=== PATIENT | female | born 2000 | race Caucasian/White ===

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

== ENCOUNTER 2020-07-01 11:36 | Emergency (ER) | payer OTHER ==
[2020-07-01 11:43] VITALS: RESP 18
[2020-07-01] MEDS ORDERED: KETOROLAC 15 MG/ML 1 ML VIAL IVP STA (12:04)
[2020-07-01] MEDS ORDERED: SODIUM CHLORIDE 0.9% 1,000 ML IV ONE (12:04)
[2020-07-01 12:26] LABS: Basophils # (A) 0.1 k/uL (0-0.2); Basophils % (A) 1 %; Eosinophils # (A) 0.2 k/uL (0-0.7); Eosinophils % (A) 1 %; HCT 39.2 % (34.0-46.0); HGB 12.4 gm/dL (11.4-16.0); Lymphocytes # (A) 1.3 k/uL (1.0-4.8); Lymphocytes % (A) 10 %; MCH 26.4 pg (25.0-35.0); MCHC 31.6 g/dL (31.0-37.0); MCV 83.7 fL (80.0-100.0); Mean Platelet Volume 7.5; Monocytes # (A) 0.6 k/uL (0-1.0); Monocytes % (A) 5 %; Neutrophils # (A) 10.7 k/uL (1.3-7.7); Neutrophils % (A) 82 %; Platelet Count 265 k/uL (150-450); RBC 4.68 m/uL (3.80-5.40); RDW 13.2 % (11.5-15.5); WBC 12.9 k/uL (3.8-10.6)
--- NOTE | 2020-07-01 12:33 | ED ---
Female Urogenital HPI - General Chief complaint: Urogenital Stated complaint: Fever/pelvic pain Time Seen by Provider: 07/01/20 11:44 Source: patient, RN notes reviewed, old records reviewed Mode of arrival: ambulatory Limitations: no limitations - History of Present Illness Initial comments: Patient is a 20-year-old female presents weren't from today with 2 days of dysuria, stating she's had redness and swelling to her genitalia. She states she's also had some right-sided flank pain starting today and has noticed fevers for the past 2 days. She did test for COVID at urgent care yesterday and was not sure of these results of this time. She denies any difficulty breathing or throat swelling or upper respiratory symptoms. - Related Data Home Medications Medication Instructions Recorded Confirmed Norgestimate-Ethinyl Estradiol 1 tab PO DAILY 01/08/15 02/04/17 [Tri-Sprintec Tablet] Ibuprofen [Motrin] 400 mg PO Q6HR PRN 02/04/17 02/04/17 L.acidoph,Paracasei, B.lactis 1 cap PO BID 02/04/17 02/04/17 [Probiotic] Miconazole Nitrate [Miconazole 3] 200 mg VAGINAL HS 02/04/17 02/04/17 Multivitamins, Thera [Multivitamin 1 tab PO DAILY 02/04/17 02/04/17 (formulary)] Naproxen Sodium [Aleve] 220 mg PO Q12HR PRN 02/04/17 02/04/17 Previous Rx's Medication Instructions Recorded Albuterol Inhaler (Mhu) [Ventolin 1 - 2 puff INHALATION Q4-6H PRN #1 02/04/17 Hfa Inhaler (Mhu)] inhaler Cephalexin [Keflex] 500 mg PO Q6HR 7 Days #28 cap 07/01/20 valACYclovir HCL [Valtrex] 1,000 mg PO BID #14 tab 07/01/20 Allergies Allergy/AdvReac Type Severity Reaction Status Date / Time amoxicillin trihydrate Allergy Unknown Verified 07/01/20 11:44 [From Augmentin] lansoprazole [From Prevacid] Allergy Unknown Verified 07/01/20 11:44 omeprazole [From Prilosec] Allergy Unknown Verified 07/01/20 11:44 potassium clavulanate Allergy Unknown Verified 07/01/20 11:44 [From Augmentin] Review of Systems ROS Statement: Those systems with pertinent positive or pertinent negative responses have been documented in the HPI. ROS Other: All systems not noted in ROS Statement are negative. Past Medical History Past Medical History: No Reported History Additional Past Medical History / Comment(s): heart murmur, PID History of Any Multi-Drug Resistant Organisms: None Reported Past Surgical History: No Surgical Hx Reported Past Psychological History: Anxiety, Depression Past Alcohol Use History: Occasional Past Drug Use History: None Reported - Past Family History Mother Family Medical History: No Reported History General Exam Limitations: no limitations Head exam: Present: atraumatic, normocephalic, normal inspection Eye exam: Present: normal appearance, PERRL, EOMI. Absent: scleral icterus, conjunctival injection, periorbital swelling ENT exam: Present: normal exam, mucous membranes moist Neck exam: Present: normal inspection. Absent: tenderness, meningismus, lymphadenopathy Respiratory exam: Present: normal lung sounds bilaterally. Absent: respiratory distress, wheezes, rales, rhonchi, stridor Cardiovascular Exam: Present: regular rate, normal rhythm, normal heart sounds. Absent: systolic murmur, diastolic murmur, rubs, gallop, clicks GI/Abdominal exam: Present: soft, normal bowel sounds. Absent: distended, tenderness, guarding, rebound, rigid External exam: Absent: normal external exam, erythema (Patient has erythematous blisterlike lesions over labia minora.) Speculum exam: Present: vaginal discharge. Absent: normal speculum exam By manual exam: Present: normal by manual exam. Absent: cervical motion tenderness, adnexal tenderness Extremities exam: Present: normal inspection, full ROM, normal capillary refill. Absent: tenderness, pedal edema, joint swelling, calf tenderness Back exam: Present: normal inspection Neurological exam: Present: alert, oriented X3, CN II-XII intact Psychiatric exam: Present: normal affect, normal mood Skin exam: Present: warm, dry, intact, normal color. Absent: rash Course Vital Signs 07/01/20 07/01/20 07/01/20 11:40 12:52 14:02 Temperature 98.1 F Pulse Rate 124 H 91 78 Respiratory 18 18 18 Rate Blood Pressure 124/72 121/70 118/73 O2 Sat by Pulse 98 98 99 Oximetry 07/01/20 14:34 Temperature 99.5 F Pulse Rate Respiratory Rate Blood Pressure O2 Sat by Pulse Oximetry Medical Decision Making - Medical Decision Making 20 year old female presents today for fever, dysuria, and labial lesions. Patient has erythematous painful lesion on labia minora, concerning for herpes simplx infection. UA is positive for UTI, and culture will be completed. She had minimnal flank pain, and was given IV rocephin for treatment of pyelonephritis. Pt cBC and cMP is unremarkable. Pt will be treated with valtrex and antibiotics. Chlamydia and gonorrhea testing pending. Discussed return parameters and OBGYN follow up. - Lab Data Result diagrams: 07/01/20 12:14 07/01/20 12:14 Lab Results 07/01/20 07/01/20 07/01/20 Range/Units 12:14 12:14 12:14 WBC 12.9 H (3.8-10.6) k/uL RBC 4.68 (3.80-5.40) m/uL Hgb 12.4 (11.4-16.0) gm/dL Hct 39.2 (34.0-46.0) % MCV 83.7 (80.0-100.0) fL MCH 26.4 (25.0-35.0) pg MCHC 31.6 (31.0-37.0) g/dL RDW 13.2 (11.5-15.5) % Plt Count 265 (150-450) k/uL Neutrophils % 82 % Lymphocytes % 10 % Monocytes % 5 % Eosinophils % 1 % Basophils % 1 % Neutrophils # 10.7 H (1.3-7.7) k/uL Lymphocytes # 1.3 (1.0-4.8) k/uL Monocytes # 0.6 (0-1.0) k/uL Eosinophils # 0.2 (0-0.7) k/uL Basophils # 0.1 (0-0.2) k/uL Sodium 136 L (137-145) mmol/L Potassium 3.9 (3.5-5.1) mmol/L Chloride 102 (98-107) mmol/L Carbon Dioxide 24 (22-30) mmol/L Anion Gap 10 mmol/L BUN 9 (7-17) mg/dL Creatinine 0.59 (0.52-1.04) mg/dL Est GFR (CKD-EPI)AfAm >90 (>60 ml/min/1.73 sqM) Est GFR (CKD-EPI)NonAf >90 (>60 ml/min/1.73 sqM) Glucose 117 H (74-99) mg/dL Plasma Lactic Acid Ruben (0.7-2.0) mmol/L Calcium 9.0 (8.4-10.2) mg/dL Total Bilirubin 0.4 (0.2-1.3) mg/dL AST 28 (14-36) U/L ALT 14 (4-34) U/L Alkaline Phosphatase 100 (38-126) U/L Total Protein 7.1 (6.3-8.2) g/dL Albumin 4.0 (3.5-5.0) g/dL Urine Color Urine Appearance (Clear) Urine pH (5.0-8.0) Ur Specific [place] (1.001-1.035) Urine Protein (Negative) Ur Protein Confirm Urine Glucose (UA) (Negative) Urine Ketones (Negative) Urine Blood (Negative) Urine Nitrite (Negative) Urine Bilirubin (Negative) Ur Bilirubin Confirm Urine Urobilinogen (<2.0) mg/dL Ur Leukocyte Esterase (Negative) Urine RBC (0-5) /hpf Urine WBC (0-5) /hpf Ur Squamous Epith Cells (0-4) /hpf Urine Bacteria (None) /hpf Urine Mucus (None) /hpf Urine HCG, Qual Not Detected (Not Detectd) Trichomonas Ag (Rapid) (Negative) 07/01/20 07/01/20 07/01/20 Range/Units 12:14 12:14 12:14 WBC (3.8-10.6) k/uL RBC (3.80-5.40) m/uL Hgb (11.4-16.0) gm/dL Hct (34.0-46.0) % MCV (80.0-100.0) fL MCH (25.0-35.0) pg MCHC (31.0-37.0) g/dL RDW (11.5-15.5) % Plt Count (150-450) k/uL Neutrophils % % Lymphocytes % % Monocytes % % Eosinophils % % Basophils % % Neutrophils # (1.3-7.7) k/uL Lymphocytes # (1.0-4.8) k/uL Monocytes # (0-1.0) k/uL Eosinophils # (0-0.7) k/uL Basophils # (0-0.2) k/uL Sodium (137-145) mmol/L Potassium (3.5-5.1) mmol/L Chloride (98-107) mmol/L Carbon Dioxide (22-30) mmol/L Anion Gap mmol/L BUN (7-17) mg/dL Creatinine (0.52-1.04) mg/dL Est GFR (CKD-EPI)AfAm (>60 ml/min/1.73 sqM) Est GFR (CKD-EPI)NonAf (>60 ml/min/1.73 sqM) Glucose (74-99) mg/dL Plasma Lactic Acid Ruben 1.5 (0.7-2.0) mmol/L Calcium (8.4-10.2) mg/dL Total Bilirubin (0.2-1.3) mg/dL AST (14-36) U/L ALT (4-34) U/L Alkaline Phosphatase (38-126) U/L Total Protein (6.3-8.2) g/dL Albumin (3.5-5.0) g/dL Urine Color Yellow Urine Appearance Slightly Cloudy H (Clear) Urine pH 6.0 (5.0-8.0) Ur Specific [place] 1.025 (1.001-1.035) Urine Protein 2+ (Negative) Ur Protein Confirm [employer]ILDER [employer]ADER Urine Glucose (UA) Negative (Negative) Urine Ketones 1+ (Negative) Urine Blood Moderate (Negative) Urine Nitrite Negative (Negative) Urine Bilirubin 2+ H (Negative) Ur Bilirubin Confirm [employer] BUILDER LOADER Urine Urobilinogen 4.0 (<2.0) mg/dL Ur Leukocyte Esterase Large (Negative) Urine RBC 17 H (0-5) /hpf Urine WBC 50 H (0-5) /hpf Ur Squamous Epith Cells 6 H (0-4) /hpf Urine Bacteria Many H (None) /hpf Urine Mucus Many H (None) /hpf Urine HCG, Qual (Not Detectd) Trichomonas Ag (Rapid) Negative (Negative) Disposition Clinical Impression: UTI (urinary tract infection), Herpes simplex infection Disposition: HOME SELF-CARE Condition: Good Instructions (If sedation given, give patient instructions): Genital Herpes Simplex (ED), Urinary Tract Infection in Women (ED) Additional Instructions: Alternate between Tylenol and Motrin for fever and pain. Follow-up with your primary care physician or [employer]PA[employer]ER symptoms continue persist or any other concerns the next week. Patient should take the entire prescription of antibiotic and antiviral medication. Return to the ED if any alarming signs or symptoms occur. Prescriptions: Cephalexin [Keflex] 500 mg PO Q6HR 7 Days #28 cap valACYclovir HCL [Valtrex] 1,000 mg PO BID #14 tab Is patient prescribed a controlled substance at d/c from ED?: No Referrals: Nonstaff,Physician [REFERRING] - 1-2 days Time of Disposition: 14:08
[2020-07-01 12:38] LABS: ALT 14 U/L (4-34); AST 28 U/L (14-36); African American GFR (CKD) >90 (>60 ml/min/1.73 sqM); Alkaline Phosphatase 100 U/L (38-126); Anion Gap 10 mmol/L; Blood Urea Nitrogen 9 mg/dL (7-17); Carbon Dioxide 24 mmol/L (22-30); Chloride 102 mmol/L (98-107); Glucose 117 mg/dL (74-99); Non-African American GFR(CKD) >90 (>60 ml/min/1.73 sqM); Potassium 3.9 mmol/L (3.5-5.1); Sodium 136 mmol/L (137-145); Total Bilirubin 0.4 mg/dL (0.2-1.3); Total Protein 7.1 g/dL (6.3-8.2)
[2020-07-01 13:31] LABS: Bacteria,Urine Many /hpf; Mucus,Urine Many /hpf; RBC,Urine 17 /hpf (0-5); Squamous Epithelial Cell,Urine 6 /hpf (0-4); WBC,Urine 50 /hpf (0-5)
[2020-07-01 13:37] LABS: Appearance,Urine Slightly Cloudy (Clear); Color,Urine Yellow
[2020-07-01 13:38] LABS: Glucose,Urine (UA) Negative (Negative); Protein,Urine 2+ (Negative); Specific Gravity,Urine 1.025 (1.001-1.035)
[2020-07-01 13:39] LABS: Bilirubin,Urine 2+ (Negative); Ketones,Urine 1+ (Negative)
[2020-07-01 13:40] LABS: Blood,Urine Moderate (Negative); Leukocyte Esterase,Urine Large (Negative); Nitrite,Urine Negative (Negative)
[2020-07-01] MEDS: cefTRIAXone IN SWFI 1,000 MG/10 ML SYRINGE IVP SCH (14:00)
[2020-07-01 14:10] VITALS: BP 118/73; PULSE 78
[2020-07-01 14:35] VITALS: TEMP 99.5
== END 2020-07-01 14:39 | disposition home or self-care (01) ==
LOC: EC 11:36
DX: N39.0 Urinary tract infection, site not specified (principal); B00.9 Herpesviral infection, unspecified; Z88.0 Allergy status to penicillin; Z88.8 Allergy status to other drugs, medicaments and biological substances; Z79.3 Long term (current) use of hormonal contraceptives
CPT/HCPCS: 36415; 80053; 83605; 85025; 81001; 81025; 87040; 87808; 87491; 87591; 87070; 87086; 99284; 96374; 96375; 96361; J0696; J1885

== ENCOUNTER 2020-07-02 11:46 | Emergency (ER) | payer OTHER ==
[2020-07-02 11:51] VITALS: BP 114/72; PULSE 105; RESP 18; TEMP 98.2
[2020-07-02] MEDS ORDERED: LIDOCAINE 2% GEL 30 ML TUBE TOPICAL ONE (12:24)
--- NOTE | 2020-07-02 12:56 | ED ---
Female Urogenital HPI - General Chief complaint: Urogenital Stated complaint: recheck - UTI Time Seen by Provider: 07/02/20 11:54 Source: patient Mode of arrival: ambulatory Limitations: no limitations - History of Present Illness Initial comments: Patient is a 20-year-old female presenting to the emergency department for a recheck from her visit yesterday. Patient was seen in the ER yesterday and was diagnosed with a UTI as well as genital herpes. She was started on Valtrex as well as Keflex and also given Rocephin in the ER before discharge. Patient states she has been using this medication but continues to have vaginal discomfort and pain. She states she still been having mild fevers. She denies any nausea or vomiting. She states she took an Aleve at approximately 4 AM this morning. She states that she has not been sexually active since November of this year. She is not . Patient is concerned with her ongoing pain and disc omfort. She admits to some mild lower abdominal cramping but states this is normal for her as she does have endometriosis. She denies any chest pain or shortness of breath. She has no further complaints at this time. Upon arrival to the ER, her vital signs are stable. - Related Data Home Medications Medication Instructions Recorded Confirmed Norgestimate-Ethinyl Estradiol 1 tab PO DAILY 01/08/15 02/04/17 [Tri-Sprintec Tablet] Ibuprofen [Motrin] 400 mg PO Q6HR PRN 02/04/17 02/04/17 L.acidoph,Paracasei, B.lactis 1 cap PO BID 02/04/17 02/04/17 [Probiotic] Miconazole Nitrate [Miconazole 3] 200 mg VAGINAL HS 02/04/17 02/04/17 Multivitamins, Thera [Multivitamin 1 tab PO DAILY 02/04/17 02/04/17 (formulary)] Naproxen Sodium [Aleve] 220 mg PO Q12HR PRN 02/04/17 02/04/17 Previous Rx's Medication Instructions Recorded Albuterol Inhaler (Mhu) [Ventolin 1 - 2 puff INHALATION Q4-6H PRN #1 02/04/17 Hfa Inhaler (Mhu)] inhaler Cephalexin [Keflex] 500 mg PO Q6HR 7 Days #28 cap 07/01/20 valACYclovir HCL [Valtrex] 1,000 mg PO BID #14 tab 07/01/20 Ethinyl Estradiol/Drospirenone 1 tab PO DAILY #1 package 07/02/20 [Holly 28 Tablet] Ketorolac [Toradol] 10 mg PO Q8HR #10 tab 07/02/20 Phenazopyridine [Pyridium] 200 mg PO TID #6 tablet 07/02/20 Allergies Allergy/AdvReac Type Severity Reaction Status Date / Time amoxicillin trihydrate Allergy Unknown Verified 07/02/20 11:51 [From Augmentin] lansoprazole [From Prevacid] Allergy Unknown Verified 07/02/20 11:51 omeprazole [From Prilosec] Allergy Unknown Verified 07/02/20 11:51 potassium clavulanate Allergy Unknown Verified 07/02/20 11:51 [From Augmentin] Review of Systems ROS Statement: Those systems with pertinent positive or pertinent negative responses have been documented in the HPI. ROS Other: All systems not noted in ROS Statement are negative. Past Medical History Past Medical History: No Reported History Additional Past Medical History / Comment(s): heart murmur, PID History of Any Multi-Drug Resistant Organisms: None Reported Past Surgical History: No Surgical Hx Reported Past Psychological History: Anxiety, Depression Past Alcohol Use History: Occasional Past Drug Use History: None Reported - Past Family History Mother Family Medical History: No Reported History General Exam - General Exam Comments Initial Comments: GENERAL: Patient is well-developed and well-nourished. Patient is nontoxic and in no acute distress. HEAD: Atraumatic, normocephalic. EYES: Pupils equal round and reactive to light, extraocular movements intact, sclera anicteric, conjunctiva are normal. Eyelids were unremarkable. ENT: TMs normal, nares patent, oropharynx clear without exudates. Moist mucous membranes. NECK: Normal range of motion, supple without lymphadenopathy or JVD. LUNGS: Unlabored respirations. Breath sounds clear to auscultation bilaterally and equal. No wheezes rales or rhonchi. HEART: Regular rate and rhythm without murmurs, rubs or gallops. ABDOMEN: Very mild suprapubic discomfort. Soft, normoactive bowel sounds. No guarding, no rebound. No masses appreciated. MUSCULOSKELETAL: Normal extremities with adequate strength and normal range of motion, no pitting or edema. No clubbing or cyanosis. NEUROLOGICAL: Patient is alert and oriented x 3. Normal speech, normal gait. PSYCH: Normal mood, normal affect. SKIN: Warm, Dry, normal turgor, no rashes or lesions noted. Limitations: no limitations External exam: Present: erythema (Mild), swelling (Mild), lesions Speculum exam: Absent: cervical discharge, vaginal bleeding By manual exam: Present: normal by manual exam Course Vital Signs 07/02/20 11:47 Temperature 98.2 F Pulse Rate 105 H Respiratory 18 Rate Blood Pressure 114/72 O2 Sat by Pulse 99 Oximetry Medical Decision Making - Medical Decision Making Patient is a 20-year-old female here for recheck from yesterday's visit. She is currently being treated for UTI as well as a genital herpes outbreak. She is currently on Keflex and Valtrex. She is been having continued pain throughout today and wanted to be reevaluated. Patient is afebrile today. Her exam is consistent with a mild genital herpes infection. I did request another urine sample however patient has not been able to go while she is here. I did review her lab work and urine from yesterday which did reveal signs of a UTI. Her urine culture, gonorrhea, chlamydia are still pending at this time. Given the fact that patient has not been sexually active since November, PID is less likely at this time. I did recommend continuing with Keflex and Valtrex for UTI, herpes infection. I did prescribe patient topical lidocaine gel for pain relief. I will also send her a prescription for Toradol and Pyridium for pain. Patient is stable for discharge. She'll follow up with her DIRECTOR [employer], who is in [place] in the next 1-3 days. Patient is agreement with this plan of care. Return parameters were discussed with the patient she verbalized understanding. Discussed with Dr. Mireles. Disposition Clinical Impression: Herpes simplex infection, UTI (urinary tract infection) Disposition: HOME SELF-CARE Condition: Stable Instructions (If sedation given, give patient instructions): Urinary Tract Infection in Women (ED) Additional Instructions: Please return to the Emergency Department if symptoms worsen or any other concerns. Continue with already prescribed Valtrex and Keflex. May use a topical lidocaine gel for pain as well as Toradol. Follow-up with [employer] in the next 1-3 days. Prescriptions: Phenazopyridine [Pyridium] 200 mg PO TID #6 tablet Ketorolac [Toradol] 10 mg PO Q8HR #10 tab Ethinyl Estradiol/Drospirenone [Holly 28 Tablet] 1 tab PO DAILY #1 package Is patient prescribed a controlled substance at d/c from ED?: No Referrals: None,Stated [Primary Care Provider] - 1-2 days
== END 2020-07-02 13:00 | disposition home or self-care (01) ==
LOC: EC 11:46
DX: N39.0 Urinary tract infection, site not specified (principal); B00.9 Herpesviral infection, unspecified; Z79.3 Long term (current) use of hormonal contraceptives; Z88.0 Allergy status to penicillin; Z88.8 Allergy status to other drugs, medicaments and biological substances
CPT/HCPCS: 99283

== ENCOUNTER 2020-07-03 23:16 | Observation (INO) | payer OTHER ==
[2020-07-03] MEDS ORDERED: ONDANSETRON 4 MG/2 ML VIAL IVP STA (23:52)
[2020-07-03] MEDS ORDERED: HYDROmorphone 0.5 MG/0.5 ML SYRINGE IVP STA (23:52)
[2020-07-03] MEDS ORDERED: SODIUM CHLORIDE 0.9% 1,000 ML IV ONE (23:52)
[2020-07-04 00:30] LABS: Basophils # (A) 0.1 k/uL (0-0.2); Basophils % (A) 1 %; Eosinophils # (A) 0.1 k/uL (0-0.7); Eosinophils % (A) 1 %; HCT 36.9 % (34.0-46.0); HGB 11.9 gm/dL (11.4-16.0); Lymphocytes # (A) 2.7 k/uL (1.0-4.8); Lymphocytes % (A) 29 %; MCH 26.5 pg (25.0-35.0); MCHC 32.4 g/dL (31.0-37.0); Mean Platelet Volume 7.4; Monocytes # (A) 0.8 k/uL (0-1.0); Monocytes % (A) 9 %; Neutrophils # (A) 5.3 k/uL (1.3-7.7); Neutrophils % (A) 58 %; Platelet Count 324 k/uL (150-450); RDW 12.7 % (11.5-15.5); WBC 9.1 k/uL (3.8-10.6)
[2020-07-04 00:41] LABS: ALT 9 U/L (4-34); AST 18 U/L (14-36); African American GFR (CKD) >90 (>60 ml/min/1.73 sqM); Albumin 3.6 g/dL (3.5-5.0); Alkaline Phosphatase 85 U/L (38-126); Anion Gap 7 mmol/L; Blood Urea Nitrogen 7 mg/dL (7-17); Calcium 8.9 mg/dL (8.4-10.2); Carbon Dioxide 25 mmol/L (22-30); Chloride 105 mmol/L (98-107); Glucose 95 mg/dL (74-99); Non-African American GFR(CKD) >90 (>60 ml/min/1.73 sqM); Potassium 3.7 mmol/L (3.5-5.1); Sodium 137 mmol/L (137-145); Total Bilirubin 0.3 mg/dL (0.2-1.3); Total Protein 6.4 g/dL (6.3-8.2)
[2020-07-04] MEDS ORDERED: HYDROmorphone 1 MG/ML 1 ML SYRINGE IVP STA (01:01)
[2020-07-04] MEDS ORDERED: KETOROLAC 15 MG/ML 1 ML VIAL IVP STA (01:01)
[2020-07-04] MEDS ORDERED: SODIUM CHLORIDE 0.9% 1,000 ML IV ONE (01:31)
[2020-07-04 01:37] LABS: Appearance,Urine Clear (Clear); Bilirubin,Urine Negative (Negative); Blood,Urine Negative (Negative); Color,Urine Brown; Glucose,Urine (UA) Negative (Negative); Ketones,Urine Negative (Negative); Leukocyte Esterase,Urine Negative (Negative); Nitrite,Urine Positive (Negative); PH, Urine 6.5 (5.0-8.0); Protein,Urine Negative (Negative); RBC,Urine <1 /hpf (0-5); Specific Gravity,Urine 1.004 (1.001-1.035); Urobilinogen,Urine <2.0 mg/dL (<2.0); WBC,Urine <1 /hpf (0-5)
--- NOTE | 2020-07-04 02:22 | ED ---
General Adult HPI - General Source: patient Mode of arrival: ambulatory Limitations: no limitations <Shelly Maguire - Last Filed: 07/04/20 03:55> <Rolando Rodriguez - Last Filed: 07/07/20 08:38> - General Chief complaint: Urogenital Stated complaint: UTI Time Seen by Provider: 07/03/20 23:28 - History of Present Illness Initial comments: 20-year-old female patient presents to the emergency department today for e valuation of pain and burning to her genitalia. Patient states that she started having symptoms a few days ago. This is her third visit to the emergency department for the same. States that initially she was diagnosed with urinary tract infection and possible outbreak of herpes simplex virus. She states that over the last couple of days she has been having difficulty with urination and her pain has been worsening. States she was given Toradol and lidocaine jelly to apply to the area which has not been helping. States that she has suprapubic discomfort due to having to urinate. States when she tries she'll make it without a couple of drops. She denies any current fever or chills. Denies any back pain. Denies any nausea or vomiting. Denies constipation or diarrhea. Patient denies any recent rash, cough, shortness of breath, chest pain, numbness, tingling, dizziness, weakness, headache, visual changes, or any other complaints. (Shelly Maguire) - Related Data Home Medications Medication Instructions Recorded Confirmed Cetirizine HCl [Zyrtec] 10 mg PO DAILY PRN 07/04/20 07/04/20 Escitalopram [Lexapro] 20 mg PO DAILY 07/04/20 07/04/20 Ketorolac [Toradol] 10 mg PO Q8HR PRN 07/04/20 07/04/20 Montelukast [Singulair] 10 mg PO DAILY PRN 07/04/20 07/04/20 Meggan 3mg/0.02mg 1 tab PO HS 07/04/20 07/04/20 Previous Rx's Medication Instructions Recorded Phenazopyridine [Pyridium] 200 mg PO TID #6 tablet 07/02/20 Cefuroxime Axetil [Ceftin] 500 mg PO BID 3 Days #6 tab 07/06/20 Famotidine [Pepcid] 20 mg PO BID #30 tab 07/06/20 HYDROcodone/APAP 7.5-325MG [Mcloud 1 each PO Q6H PRN #12 tab 07/06/20 7.5-325] Pregabalin [Lyrica] 200 mg PO BID #40 cap 07/06/20 Sennosides [Senokot] 8.6 mg PO DAILY #10 tablet 07/06/20 valACYclovir HCL [Valtrex] 1,000 mg PO BID 7 Days #14 tab 07/06/20 Allergies Allergy/AdvReac Type Severity Reaction Status Date / Time amoxicillin trihydrate Allergy Unknown Verified 07/04/20 07:32 [From Augmentin] lansoprazole [From Prevacid] Allergy Unknown Verified 07/04/20 07:32 omeprazole [From Prilosec] Allergy Unknown Verified 07/04/20 07:32 potassium clavulanate Allergy Unknown Verified 07/04/20 07:32 [From Augmentin] Review of Systems ROS Other: All systems not noted in ROS Statement are negative. <Shelly Maguire - Last Filed: 07/04/20 03:55> ROS Other: All systems not noted in ROS Statement are negative. <Rolando Rodriguez - Last Filed: 07/07/20 08:38> ROS Statement: Those systems with pertinent positive or pertinent negative responses have been documented in the HPI. Past Medical History Past Medical History: No Reported History Additional Past Medical History / Comment(s): heart murmur, PID History of Any Multi-Drug Resistant Organisms: None Reported Past Surgical History: No Surgical Hx Reported Past Psychological History: Anxiety, Depression Smoking Status: Never smoker Past Alcohol Use History: Occasional Past Drug Use History: None Reported - Past Family History Mother Family Medical History: No Reported History <Shelly Maguire - Last Filed: 07/04/20 03:55> General Exam Limitations: no limitations General appearance: alert, in no apparent distress, other (This is a well- developed, well-nourished adult female patient in mild distress related to pain.) Eye exam: Present: normal appearance, PERRL, EOMI. Absent: scleral icterus, conjunctival injection, periorbital swelling ENT exam: Present: normal exam, normal oropharynx, mucous membranes moist Respiratory exam: Present: normal lung sounds bilaterally. Absent: respiratory distress, wheezes, rales, rhonchi, stridor Cardiovascular Exam: Present: regular rate, normal rhythm, normal heart sounds. Absent: systolic murmur, diastolic murmur, rubs, gallop, clicks GI/Abdominal exam: Present: soft, tenderness (Suprapubic), normal bowel sounds. Absent: distended, guarding, rebound, rigid External exam: Present: lesions (There are ulcerative lesions noted to the labia minora bilaterally. There is small bolus type lesion noted to the left labia majora.) Neurological exam: Present: alert, oriented X3, CN II-XII intact Psychiatric exam: Present: normal affect, normal mood Skin exam: Present: warm, dry, intact, normal color. Absent: rash <Shelly Maguire - Last Filed: 07/04/20 03:55> Course Vital Signs 07/03/20 07/04/20 07/04/20 23:18 00:20 01:40 Temperature 98.4 F 98.6 F 98.8 F Pulse Rate 113 H 85 81 Pulse Rate [ Pulse Oximetery ] Respiratory 18 18 16 Rate Blood Pressure 147/98 110/56 Blood Pressure [Right Arm] O2 Sat by Pulse 97 96 97 Oximetry 07/04/20 07/04/20 07/04/20 02:40 03:48 04:15 Temperature 98.1 F 97.7 F 98.8 F Pulse Rate 90 90 Pulse Rate [ 86 Pulse Oximetery ] Respiratory 16 16 16 Rate Blood Pressure 124/56 136/65 Blood Pressure 116/76 [Right Arm] O2 Sat by Pulse 97 97 98 Oximetry 07/04/20 04:45 Temperature 97.7 F Pulse Rate 88 Pulse Rate [ Pulse Oximetery ] Respiratory 16 Rate Blood Pressure 111/59 Blood Pressure [Right Arm] O2 Sat by Pulse 96 Oximetry Medical Decision Making - Lab Data Result diagrams: 07/04/20 00:20 07/04/20 00:20 <Shelly Maguire - Last Filed: 07/04/20 03:55> - Lab Data Result diagrams: 07/04/20 00:20 07/04/20 00:20 <Rolando Rodriguez - Last Filed: 07/07/20 08:38> - Medical Decision Making 20-year-old female patient presents to the emergency department today for evaluation of severe pelvic pain, urinary retention. Patient was evaluated couple of days ago for similar symptoms was diagnosed with urinary tract infecti on and herpes simplex outbreak. Patient was started on Keflex and Valtrex and discharged. She was seen again yesterday for significant discomfort and urinary retention and discharged home with additional pain medications. Patient returns today stating her pain is worse. Physical examination did reveal lesions over the labia minora and majora concerning for HSV-2. Bladder scan was performed an d showed a level of over 650 mL, she was straight cathed for 800 mL after multiple attempts to void. Labs were reviewed and were unremarkable. I did review labs from previous visits, Gonorrhea and Chlamydia swabs were negative. Urine culture was negative. I did send viral swab for HSV testing tonight. Patient required multiple doses of pain medication. Plan was to discharge with fritz catheter in place however upon re-evaluation patient is again experiencing significant discomfort, extreme nausea, and shaking chills. We will admit for observation for intractable pain and further evaluation by urology. I believe that HSV associated neurogenic bladder should be considered in the differential if her HSV testing is positive. We will continue valtrex, discontinue keflex due to clean urine culture. Pain and nausea medication will be ordered as well as PRN bladder scan with orders to insert Fritz catheter for >250ml urine and inability to void. (Shelly Maguire) - Lab Data Lab Results 07/04/20 07/04/20 07/04/20 Range/Units 00:20 00:20 00:20 WBC 9.1 (3.8-10.6) k/uL RBC 4.50 (3.80-5.40) m/uL Hgb 11.9 (11.4-16.0) gm/dL Hct 36.9 (34.0-46.0) % MCV 82.0 (80.0-100.0) fL MCH 26.5 (25.0-35.0) pg MCHC 32.4 (31.0-37.0) g/dL RDW 12.7 (11.5-15.5) % Plt Count 324 (150-450) k/uL Neutrophils % 58 % Lymphocytes % 29 % Monocytes % 9 % Eosinophils % 1 % Basophils % 1 % Neutrophils # 5.3 (1.3-7.7) k/uL Lymphocytes # 2.7 (1.0-4.8) k/uL Monocytes # 0.8 (0-1.0) k/uL Eosinophils # 0.1 (0-0.7) k/uL Basophils # 0.1 (0-0.2) k/uL Sodium (137-145) mmol/L Potassium (3.5-5.1) mmol/L Chloride (98-107) mmol/L Carbon Dioxide (22-30) mmol/L Anion Gap mmol/L BUN (7-17) mg/dL Creatinine (0.52-1.04) mg/dL Est GFR (CKD-EPI)AfAm (>60 ml/min/1.73 sqM) Est GFR (CKD-EPI)NonAf (>60 ml/min/1.73 sqM) Glucose (74-99) mg/dL Calcium (8.4-10.2) mg/dL Total Bilirubin (0.2-1.3) mg/dL AST (14-36) U/L ALT (4-34) U/L Alkaline Phosphatase (38-126) U/L Total Protein (6.3-8.2) g/dL Albumin (3.5-5.0) g/dL Urine Color Brown Urine Appearance Clear (Clear) Urine pH 6.5 (5.0-8.0) Ur Specific [place] 1.004 (1.001-1.035) Urine Protein Negative (Negative) Urine Glucose (UA) Negative (Negative) Urine Ketones Negative (Negative) Urine Blood Negative (Negative) Urine Nitrite Positive H (Negative) Urine Bilirubin Negative (Negative) Urine Urobilinogen <2.0 (<2.0) mg/dL Ur Leukocyte Esterase Negative (Negative) Urine RBC <1 (0-5) /hpf Urine WBC <1 (0-5) /hpf Urine HCG, Qual Not Detected (Not Detectd) HSV I DNA PCR (Not detected) HSV II DNA PCR (Not detected) HSV (PCR) Source 07/04/20 07/04/20 Range/Units 00:20 00:20 WBC (3.8-10.6) k/uL RBC (3.80-5.40) m/uL Hgb (11.4-16.0) gm/dL Hct (34.0-46.0) % MCV (80.0-100.0) fL MCH (25.0-35.0) pg MCHC (31.0-37.0) g/dL RDW (11.5-15.5) % Plt Count (150-450) k/uL Neutrophils % % Lymphocytes % % Monocytes % % Eosinophils % % Basophils % % Neutrophils # (1.3-7.7) k/uL Lymphocytes # (1.0-4.8) k/uL Monocytes # (0-1.0) k/uL Eosinophils # (0-0.7) k/uL Basophils # (0-0.2) k/uL Sodium 137 (137-145) mmol/L Potassium 3.7 (3.5-5.1) mmol/L Chloride 105 (98-107) mmol/L Carbon Dioxide 25 (22-30) mmol/L Anion Gap 7 mmol/L BUN 7 (7-17) mg/dL Creatinine 0.60 (0.52-1.04) mg/dL Est GFR (CKD-EPI)AfAm >90 (>60 ml/min/1.73 sqM) Est GFR (CKD-EPI)NonAf >90 (>60 ml/min/1.73 sqM) Glucose 95 (74-99) mg/dL Calcium 8.9 (8.4-10.2) mg/dL Total Bilirubin 0.3 (0.2-1.3) mg/dL AST 18 (14-36) U/L ALT 9 (4-34) U/L Alkaline Phosphatase 85 (38-126) U/L Total Protein 6.4 (6.3-8.2) g/dL Albumin 3.6 (3.5-5.0) g/dL Urine Color Urine Appearance (Clear) Urine pH (5.0-8.0) Ur Specific [place] (1.001-1.035) Urine Protein (Negative) Urine Glucose (UA) (Negative) Urine Ketones (Negative) Urine Blood (Negative) Urine Nitrite (Negative) Urine Bilirubin (Negative) Urine Urobilinogen (<2.0) mg/dL Ur Leukocyte Esterase (Negative) Urine RBC (0-5) /hpf Urine WBC (0-5) /hpf Urine HCG, Qual (Not Detectd) HSV I DNA PCR Not detected (Not detected) HSV II DNA PCR Not detected (Not detected) HSV (PCR) Source Urogenital Disposition Is patient prescribed a controlled substance at d/c from ED?: No Decision to Admit Reason: Admit from EC Decision Date: 07/04/20 Decision Time: 04:03 <Shelly Maguire - Last Filed: 07/04/20 03:55> <Rolando Rodriguez - Last Filed: 07/07/20 08:38> Clinical Impression: Urinary retention, Pelvic pain, Herpes simplex infection Disposition: ADMITTED IP TO THIS HOSP Condition: Stable
[2020-07-04] MEDS ORDERED: HYDROmorphone 0.5 MG/0.5 ML SYRINGE IVP STA (02:33)
[2020-07-04] MEDS ORDERED: ONDANSETRON 4 MG/2 ML VIAL IVP STA (03:54)
[2020-07-04] MEDS ORDERED: ONDANSETRON 4 MG/2 ML VIAL IVP PRN (03:55)
[2020-07-04] MEDS ORDERED: NALOXONE 0.4 MG/ML 1 ML VIAL IV PRN (03:55)
[2020-07-04] MEDS ORDERED: SODIUM CHLORIDE 0.9% 1,000 ML IV SCH (04:00)
[2020-07-04] MEDS: HYDROmorphone 0.5 MG/0.5 ML SYRINGE IVP PRN ×2 (05:38→08:06)
[2020-07-04] MEDS ORDERED: HYDROcodone/APAP 5-325MG 1 EACH TAB PO STA (07:23)
--- NOTE | 2020-07-04 10:31 | P.GSCN ---
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 She is evaluated and thought to have some bleeding infection and subsequently urine infection/perhaps herpes infection of the vulva. She was placed on Valtrex and Keflex couple of days ago area she came to the emergency room this morning and significant pain in urine retention. Urologically the patient does have a history of pelvic floor pain syndrome. She sees an margin trimmer in the [place] area for this. She is gone to physical therapy for pelvic floor relaxation exercises. He has not had a urine infection in quite a while. She normally has no problems voiding. Last Thursday she started to have problems voiding. She was catheterized for 650 mL of clear urine today. She did have a urine test on 07/01 that did not identify any infection. She has examined herself and noticed that she was swelling and that there is some irritated areas in the labia. Review of Systems All systems: negative - Constitutional Denies fever, Denies weight loss - EENT Eyes: denies blurred vision Ears, nose, mouth and throat: Denies dysphagia - Cardiovascular Denies chest pain, Denies shortness of breath - Respiratory Denies cough, Denies 7 - Gastrointestinal Reports as per HPI - Genitourinary Genitourinary: Denies dysuria, Denies hematuria - Integumentary Denies rash, Denies unusual bruising - Neurological Denies headaches, Denies syncope - Hematologic/Lymphatic Denies easy bleeding, Denies easy bruising Past Medical History Past Medical History: No Reported History Additional Past Medical History / Comment(s): heart murmur, PID History of Any Multi-Drug Resistant Organisms: None Reported Past Surgical History: No Surgical Hx Reported Past Anesthesia/Blood Transfusion Reactions: No Reported Reaction Past Psychological History: Anxiety, Depression Smoking Status: Never smoker Past Alcohol Use History: Occasional Past Drug Use History: None Reported - Past Family History Mother Family Medical History: No Reported History Medications and Allergies Home Medications Medication Instructions Recorded Confirmed Type Cephalexin [Keflex] 500 mg PO Q6HR 7 Days #28 cap 07/01/20 07/04/20 Rx valACYclovir HCL [Valtrex] 1,000 mg PO BID #14 tab 07/01/20 07/04/20 Rx Phenazopyridine [Pyridium] 200 mg PO TID #6 tablet 07/02/20 07/04/20 Rx Cetirizine HCl [Zyrtec] 10 mg PO DAILY PRN 07/04/20 07/04/20 History Escitalopram [Lexapro] 20 mg PO DAILY 07/04/20 07/04/20 History Ketorolac [Toradol] 10 mg PO Q8HR PRN 07/04/20 07/04/20 History Montelukast [Singulair] 10 mg PO DAILY PRN 07/04/20 07/04/20 History Meggan 3mg/0.02mg 1 tab PO HS 07/04/20 07/04/20 History Allergies Allergy/AdvReac Type Severity Reaction Status Date / Time amoxicillin trihydrate Allergy Unknown Verified 07/04/20 07:32 [From Augmentin] lansoprazole [From Prevacid] Allergy Unknown Verified 07/04/20 07:32 omeprazole [From Prilosec] Allergy Unknown Verified 07/04/20 07:32 potassium clavulanate Allergy Unknown Verified 07/04/20 07:32 [From Augmentin] Surgical - Exam Vital Signs Temp Pulse Resp BP Pulse Ox 98.4 F 113 H 18 147/98 97 07/03/20 23:18 07/03/20 23:18 07/03/20 23:18 07/03/20 23:18 07/03/20 23:18 - General well developed, well nourished, no distress - Eyes PERRL - ENT no hearing loss - Neck trachea midline - Respiratory normal expansion, normal respiratory effort - Cardiovascular Rhythm: regular - Abdomen Abdomen: soft, non tender - Genitourinary Indwelling catheter with clear urine, the labia are slightly edematous. There are couple of open sores on the right labia majora. SHe is very tender to touch. There is some mucosal discharge. - Integumentary no rash - Neurologic normal coordination, normal sensation - Musculoskeletal normal posture - Psychiatric oriented to time, oriented to person, oriented to place, speech is normal, memory intact Results - Labs 07/04/20 00:20 07/04/20 00:20 Abnormal Lab Results - Last 24 Hours (Table) 07/04/20 Range/Units 00:20 Urine Nitrite Positive H (Negative) Diabetes panel 07/04/20 Range/Units 00:20 Sodium 137 (137-145) mmol/L Potassium 3.7 (3.5-5.1) mmol/L Chloride 105 (98-107) mmol/L Carbon Dioxide 25 (22-30) mmol/L BUN 7 (7-17) mg/dL Creatinine 0.60 (0.52-1.04) mg/dL Glucose 95 (74-99) mg/dL Calcium 8.9 (8.4-10.2) mg/dL AST 18 (14-36) U/L ALT 9 (4-34) U/L Alkaline Phosphatase 85 (38-126) U/L Total Protein 6.4 (6.3-8.2) g/dL Albumin 3.6 (3.5-5.0) g/dL Calcium panel 07/04/20 Range/Units 00:20 Calcium 8.9 (8.4-10.2) mg/dL Albumin 3.6 (3.5-5.0) g/dL Pituitary panel 07/04/20 Range/Units 00:20 Sodium 137 (137-145) mmol/L Potassium 3.7 (3.5-5.1) mmol/L Chloride 105 (98-107) mmol/L Carbon Dioxide 25 (22-30) mmol/L BUN 7 (7-17) mg/dL Creatinine 0.60 (0.52-1.04) mg/dL Glucose 95 (74-99) mg/dL Calcium 8.9 (8.4-10.2) mg/dL Adrenal panel 07/04/20 Range/Units 00:20 Sodium 137 (137-145) mmol/L Potassium 3.7 (3.5-5.1) mmol/L Chloride 105 (98-107) mmol/L Carbon Dioxide 25 (22-30) mmol/L BUN 7 (7-17) mg/dL Creatinine 0.60 (0.52-1.04) mg/dL Glucose 95 (74-99) mg/dL Calcium 8.9 (8.4-10.2) mg/dL Total Bilirubin 0.3 (0.2-1.3) mg/dL AST 18 (14-36) U/L ALT 9 (4-34) U/L Alkaline Phosphatase 85 (38-126) U/L Total Protein 6.4 (6.3-8.2) g/dL Albumin 3.6 (3.5-5.0) g/dL Assessment and Plan Assessment: Impression: Urine retention secondary to pelvic floor and sphincter spasm from probable herpes Simplex of the labia. History of pelvic floor pain syndrome Recommendations: I would continue with the Valtrex. I do not think she has had a urinary tract infection. If she feels better in the morning we can remove the catheter for a voiding trial. If she is unable to urinate she'll probably have to be taught clean intermittent catheterization. When the viral infection subsides I'm sure that she'll be ble to void without problems.
[2020-07-04] MEDS ORDERED: PHENAZOPYRIDINE 200 MG TAB PO PRN (11:43)
[2020-07-04] MEDS ORDERED: LORATADINE 10 MG TAB PO PRN (11:43)
[2020-07-04] MEDS: ESCITALOPRAM 20 MG TAB PO SCH (11:57)
[2020-07-04] MEDS: FAMOTIDINE 20 MG TAB PO SCH ×2 (11:57→21:15)
[2020-07-04] MEDS: valACYclovir HCL 1,000 MG TABLET PO SCH ×2 (11:57→21:15)
[2020-07-04] MEDS: KETOROLAC 15 MG/ML 1 ML VIAL IVP SCH ×2 (11:57→17:32)
[2020-07-04] MEDS: SODIUM CHLORIDE 0.9% 1,000 ML IV SCH ×2 (11:58→21:16)
[2020-07-04] MEDS ORDERED: HYDROmorphone 0.5 MG/0.5 ML SYRINGE IVP PRN (13:55)
--- NOTE | 2020-07-04 14:00 | P.HPIM ---
History of Present Illness 20-year-old pleasant female came in with the complaints of pain in the pelvic area mostly in the will work and labial area. Patient is found to have zoster of the vulva did in the was having burning sensation probably secondary to her possessed because of which patient was given Valtrex and Keflex and was sent home because of uncontrollable pain patient came back. Patient has pelvic floor pain syndrome for which patient usually follows up with the COUNSELLORS specialist and arm area. Patient has been doing pelvic floor exercises patient was having problems with urination as well because of the pain in the pelvic area. Urine showed white blood cell counts but no other significant abnormality was appreciated in the urine. Possibly of EKGs low and urine abnormality was secondary to herpes zoster and patient was given Keflex which she took for about a 3-4 days. Review of Systems REVIEW OF SYSTEMS: CONSTITUTIONAL: No fever, no malaise, no fatigue. HEENT: No recent visual problems or hearing problems. Denied any sore throat. CARDIOVASCULAR: No chest pain, orthopnea, PND, no palpitations, no syncope. PULMONARY: No shortness of breath, no cough, no hemoptysis. GASTROINTESTINAL: No diarrhea, no nausea, no vomiting, no abdominal pain. NEUROLOGICAL: No headaches, no weakness, no numbness. HEMATOLOGICAL: Denies any bleeding or petechiae. GENITOURINARY: Mentioned in HPI MUSCULOSKELETAL/RHEUMATOLOGICAL: Denies any joint pain, swelling, or any muscle pain. ENDOCRINE: Denies any polyuria or polydipsia. The rest of the 14-point review of systems is negative. Past Medical History Past Medical History: No Reported History Additional Past Medical History / Comment(s): heart murmur, PID History of Any Multi-Drug Resistant Organisms: None Reported Past Surgical History: No Surgical Hx Reported Past Anesthesia/Blood Transfusion Reactions: No Reported Reaction Past Psychological History: Anxiety, Depression Smoking Status: Never smoker Past Alcohol Use History: Occasional Past Drug Use History: None Reported - Past Family History Mother Family Medical History: No Reported History Medications and Allergies Home Medications Medication Instructions Recorded Confirmed Type Cephalexin [Keflex] 500 mg PO Q6HR 7 Days #28 cap 07/01/20 07/04/20 Rx valACYclovir HCL [Valtrex] 1,000 mg PO BID #14 tab 07/01/20 07/04/20 Rx Phenazopyridine [Pyridium] 200 mg PO TID #6 tablet 07/02/20 07/04/20 Rx Cetirizine HCl [Zyrtec] 10 mg PO DAILY PRN 07/04/20 07/04/20 History Escitalopram [Lexapro] 20 mg PO DAILY 07/04/20 07/04/20 History Ketorolac [Toradol] 10 mg PO Q8HR PRN 07/04/20 07/04/20 History Montelukast [Singulair] 10 mg PO DAILY PRN 07/04/20 07/04/20 History Meggan 3mg/0.02mg 1 tab PO HS 07/04/20 07/04/20 History Allergies Allergy/AdvReac Type Severity Reaction Status Date / Time amoxicillin trihydrate Allergy Unknown Verified 07/04/20 07:32 [From Augmentin] lansoprazole [From Prevacid] Allergy Unknown Verified 07/04/20 07:32 omeprazole [From Prilosec] Allergy Unknown Verified 07/04/20 07:32 potassium clavulanate Allergy Unknown Verified 07/04/20 07:32 [From Augmentin] Physical Exam Vitals: Vital Signs Temp Pulse Pulse Resp BP BP Pulse Ox 07/04/20 06:41 98.7 F 90 14 129/83 96 07/04/20 05:46 84 16 07/04/20 04:45 97.7 F 88 16 111/59 96 07/04/20 04:15 98.8 F 86 16 116/76 98 07/04/20 03:48 97.7 F 90 16 136/65 97 07/04/20 02:40 98.1 F 90 16 124/56 97 07/04/20 01:40 98.8 F 81 16 110/56 97 07/04/20 00:20 98.6 F 85 18 96 07/03/20 23:18 98.4 F 113 H 18 147/98 97 Intake and Output 07/03/20 07/04/20 07/04/20 22:59 06:59 14:59 Output Total 1924 Balance -192 Output: Urine 1925 Straight 825 Other: Voiding Method Indwelling Catheter Indwelling Catheter Weight 83.915 kg PHYSICAL EXAMINATION: GENERAL: The patient is alert and oriented x3, not in any acute distress. Well developed, well nourished. HEENT: Pupils are round and equally reacting to light. EOMI. No scleral icterus. No conjunctival pallor. Normocephalic, atraumatic. No pharyngeal erythema. No thyromegaly. CARDIOVASCULAR: S1 and S2 present. No murmurs, rubs, or gallops. PULMONARY: Chest is clear to auscultation, no wheezing or crackles. ABDOMEN: Soft, nontender, nondistended, normoactive bowel sounds. No palpable organomegaly. MUSCULOSKELETAL: No joint swelling or deformity. EXTREMITIES: No cyanosis, clubbing, or pedal edema. NEUROLOGICAL: Gross neurological examination did not reveal any focal deficits. SKIN: No rashes. 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 Patient had a Veras catheter now if her pain is better controlled we'll try and remove Veras catheter tomorrow morning and do the voiding trial. -Genital herpes: Continue with Valtrex no evidence of UTI at this time. -Pain management: Will use Lyrica for neuropathic pain along with Toradol and [place] for pain. -Depression continue with the Lexapro DVT prophylaxis: Early ambulation
[2020-07-04] MEDS: HYDROcodone/APAP 7.5-325MG 1 EACH TAB PO PRN ×2 (14:02→21:15)
[2020-07-04] MEDS: PREGABALIN 75 MG CAP PO SCH (21:16)
[2020-07-05] MEDS: KETOROLAC 15 MG/ML 1 ML VIAL IVP SCH ×5 (00:03→23:05)
--- NOTE | 2020-07-05 07:29 | P.PN ---
Subjective Progress Note Date: 07/05/20 the patient is in urinary retention due to pain from vulvar herpes with pain. She is feeling better this morning. We will remove the catheter. If she is unable to void or struggles avoid we will teach her clean intermittent catheterization. Once her voiding status stabilizes then from a urologic stand point she can be discharged home. Objective - Vital Signs Vital signs: Vital Signs Temp 97.8 F 07/05/20 02:47 Pulse 74 07/05/20 02:47 Resp 17 07/05/20 03:51 BP 112/68 07/05/20 02:47 Pulse Ox 96 07/05/20 02:47 Intake & Output 07/04/20 07/05/20 07/05/20 18:59 06:59 18:59 Intake Total 700 Output Total 1400 2400 Balance -700 -2400 Intake: Intake, IV Titration 700 Amount Sodium Chloride 0.9% 1, 700 000 ml @ 100 mls/hr IV . Q10H [facility] Rx#:[id number] Output: Urine 1400 2400 Other: Voiding Method Indwelling Catheter Indwelling Catheter Indwelling Catheter - Labs CBC & Chem 7: 07/04/20 00:20 07/04/20 00:20
[2020-07-05] MEDS: SODIUM CHLORIDE 0.9% 1,000 ML IV SCH ×2 (08:17→17:03)
[2020-07-05] MEDS: valACYclovir HCL 1,000 MG TABLET PO SCH ×2 (08:18→20:08)
[2020-07-05] MEDS: HYDROcodone/APAP 7.5-325MG 1 EACH TAB PO PRN ×2 (08:18→18:51)
[2020-07-05] MEDS: ESCITALOPRAM 20 MG TAB PO SCH (08:18)
[2020-07-05] MEDS: PREGABALIN 75 MG CAP PO SCH (08:18)
[2020-07-05] MEDS: FAMOTIDINE 20 MG TAB PO SCH ×2 (08:18→20:09)
[2020-07-05 12:11] LABS: Appearance,Urine Clear (Clear); Bacteria,Urine Moderate /hpf; Bilirubin,Urine Negative (Negative); Blood,Urine Negative (Negative); Color,Urine Light Yellow; Glucose,Urine (UA) Negative (Negative); Ketones,Urine Negative (Negative); Leukocyte Esterase,Urine Moderate (Negative); Mucus,Urine Rare /hpf; Nitrite,Urine Negative (Negative); PH, Urine 6.5 (5.0-8.0); Protein,Urine Negative (Negative); RBC,Urine 1 /hpf (0-5); Specific Gravity,Urine 1.007 (1.001-1.035); Squamous Epithelial Cell,Urine 1 /hpf (0-4); Urobilinogen,Urine <2.0 mg/dL (<2.0); WBC,Urine 12 /hpf (0-5)
--- NOTE | 2020-07-05 15:47 | P.PN ---
Subjective Progress Note Date: 07/05/20 Principal diagnosis: 20-year-old pleasant female came in with the complaints of pain in the pelvic area mostly in the will work and labial area. Patient is found to have zoster of the vulva did in the was having burning sensation probably secondary to her possessed because of which patient was given Valtrex and Keflex and was sent home because of uncontrollable pain patient came back. Patient has pelvic floor pain syndrome for which patient usually follows up with the HOSPICE ADMITTING CLERK specialist and arm area. Patient has been doing pelvic floor exercises patient was having problems with urination as well because of the pain in the pelvic area. Urine showed white blood cell counts but no other significant abnormality was appreciated in the urine. Possibly of EKGs low and urine abnormality was secondary to herpes zoster and patient was given Keflex which she took for about a 3-4 days. 07/05/2020 Patient is seen and evaluated and follow-up and continues to have genital discom fort. Patient had an indwelling Veras catheter which was removed and patient is voiding and having some dysuria and discomfort with urination. Repeat urinalysis shows a moderate amount of leukocytes. Patient denies any retention at this time. She is maintained on Valtrex and will continue at this time. She was seen and evaluated by urology recommending discontinuing indwelling Veras catheter and monitoring for any retention. Will initiate IV antibiotics and await urine culture. No reports of chest pain, shortness of breath, or palpitations. Patient denies any nausea or vomiting and states that her appetite is poor. We'll continue to observe overnight with the possibility of discharge in the morning. Objective - Vital Signs Vital signs: Vital Signs Temp 98.0 F 07/05/20 07:00 Pulse 79 07/05/20 07:00 Resp 16 07/05/20 07:00 BP 119/74 07/05/20 07:00 Pulse Ox 97 07/05/20 07:00 Intake & Output 07/04/20 07/05/20 07/05/20 18:59 06:59 18:59 Intake Total 700 200 Output Total 1400 2400 700 Balance -700 -2400 -500 Intake: Intake, IV Titration 700 200 Amount Sodium Chloride 0.9% 1, 700 200 000 ml @ 100 mls/hr IV . Q10H [facility] Rx#:[id number] Output: Urine 1400 2400 700 Other: Voiding Method Indwelling Catheter Indwelling Catheter Indwelling Catheter - Exam GENERAL: The patient is alert and oriented x3, not in any acute distress. Well developed, well nourished. HEENT: Pupils are round and equally reacting to light. EOMI. No scleral icterus. No conjunctival pallor. Normocephalic, atraumatic. No pharyngeal erythema. No thyromegaly. CARDIOVASCULAR: S1 and S2 present. No murmurs, rubs, or gallops. PULMONARY: Chest is clear to auscultation, no wheezing or crackles. ABDOMEN: Soft, nontender, nondistended, normoactive bowel sounds. No palpable organomegaly. MUSCULOSKELETAL: No joint swelling or deformity. EXTREMITIES: No cyanosis, clubbing, or pedal edema. NEUROLOGICAL: Gross neurological examination did not reveal any focal deficits. SKIN: No rashes. 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 Indwelling Veras catheter was removed and patient is voiding. Discussed with nursing staff about monitoring for retention and may bladder scan as needed. R epeat urinalysis shows moderate amount of leukocytes and will initiate IV antibiotics. Will monitor closely overnight with possibility of discharge in the morning. -Genital herpes: Continue with Valtrex -Pain management: Will use Lyrica for neuropathic pain along with Toradol and [place] for pain. -Depression continue with the Lexapro -DVT prophylaxis: Early ambulation
[2020-07-05] MEDS: PREGABALIN 100 MG CAP PO SCH (20:08)
[2020-07-06] MEDS: HYDROcodone/APAP 7.5-325MG 1 EACH TAB PO PRN (01:16)
[2020-07-06] MEDS: SODIUM CHLORIDE 0.9% 1,000 ML IV SCH ×2 (02:31→08:16)
[2020-07-06] MEDS: KETOROLAC 15 MG/ML 1 ML VIAL IVP SCH ×2 (05:58→12:20)
[2020-07-06 07:31] VITALS: BP 127/82; PULSE 75; RESP 17; TEMP 98.1
[2020-07-06] MEDS: PREGABALIN 100 MG CAP PO SCH (08:11)
[2020-07-06] MEDS: FAMOTIDINE 20 MG TAB PO SCH (08:11)
[2020-07-06] MEDS: ESCITALOPRAM 20 MG TAB PO SCH (08:11)
[2020-07-06] MEDS: valACYclovir HCL 1,000 MG TABLET PO SCH (08:12)
--- NOTE | 2020-07-06 08:37 | P.PN ---
Subjective Progress Note Date: 07/06/20 The patient is in the hospital with pelvic pain, urine retention and the labial lesions probable herpes despite the negative testing. With open sores and no other reason I suspect this is cause. She has chronic pelvic pain which is aggravated the situation and the urine retention is probably due to the combination of the labial irritation and pelvic pain. She is now urinating. A post catheter urine was obtained identifying 12 white cells and some bacteria. Pending the culture antibiotics are appropriate. I would place her on oral antibiotics and discharge her home and have her follow-up to make sure that the culture has been interpreted. I do not need to see her back. She can see her data control clerk supervisor on [place] for her pelvic pain for any further pain issues. I'm always happy to see her however in this is been discussed with the patient. Objective - Vital Signs Vital signs: Vital Signs Temp 98.1 F 07/06/20 07:00 Pulse 75 07/06/20 07:00 Resp 17 07/06/20 07:00 BP 127/82 07/06/20 07:00 Pulse Ox 95 07/06/20 07:00 Intake & Output 07/05/20 07/06/20 07/06/20 18:59 06:59 18:59 Intake Total 200 Output Total 2800 1625 Balance -2600 -1625 Intake: Intake, IV Titration 200 Amount Sodium Chloride 0.9% 1, 200 000 ml @ 100 mls/hr IV . Q10H [facility] Rx#:[id number] Output: Urine 2800 1625 Other: Voiding Method Indwelling Catheter Toilet # Voids 3 - Labs CBC & Chem 7: 07/04/20 00:20 07/04/20 00:20 Labs: Abnormal Lab Results - Last 24 Hours (Table) 07/05/20 Range/Units 11:43 Ur Leukocyte Esterase Moderate H (Negative) Urine WBC 12 H (0-5) /hpf Urine Bacteria Moderate H (None) /hpf Urine Mucus Rare H (None) /hpf Microbiology - Last 24 Hours (Table) 07/05/20 11:43 Urine Culture - Preliminary Urine,Voided
--- NOTE | 2020-07-06 19:37 | P.DS ---
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 Patient will follow-up with her primary care provider and STEAMBOAT INSPECTOR upon discharge. Total time taken is 35 minutes. History of present illness This is a 20-year-old female who was recently admitted with pain in the vulvar area with possibility of herpes zoster and was being closely monitored. Patient was also having some urinary retention and was evaluated by urology. Patient had an indwelling fritz catheter. Fritz was removed and patient was able to void. Patient had HSV 1&2 testing which was negative although vesicular lesions were noted of the left labia minora on exam. Patient will continue on Valtrex until STEAMBOAT INSPECTOR follow up and Ceftin 500mg twice daily for 3 days. Patient was also given Lyrica for pain. 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 Currently no reports of chest pain, palpitations, or shortness. Patient is afebrile. No reports of nausea or vomiting and patient is tolerating diet. On exam vital signs are stable. Temp is 98.1F, pulse is 75, respirations are 17, blood pressure 127/82, oxygen saturation is 95% on room air. Cardio S1, S2 are present. Respiratory shows clear to auscultation. Abdomen is soft and nontender. Nervous system shows no focal deficits. Please refer to medication reconciliation sheet for a list of medications. Patient Condition at Discharge: Stable Plan - Discharge Summary Discharge Rx Participant: No New Discharge Prescriptions: New Cefuroxime Axetil [Ceftin] 500 mg PO BID 3 Days #6 tab Pregabalin [Lyrica] 200 mg PO BID #40 cap HYDROcodone/APAP 7.5-325MG [[place] 7.5-325] 1 each PO Q6H PRN #12 tab PRN Reason: Pain Famotidine [Pepcid] 20 mg PO BID #30 tab Sennosides [Senokot] 8.6 mg PO DAILY #10 tablet Continue Phenazopyridine [Pyridium] 200 mg PO TID #6 tablet Meggan 3mg/0.02mg 1 tab PO HS Ketorolac [Toradol] 10 mg PO Q8HR PRN PRN Reason: Pain Cetirizine HCl [Zyrtec] 10 mg PO DAILY PRN PRN Reason: Allergy Symptoms Escitalopram [Lexapro] 20 mg PO DAILY Montelukast [Singulair] 10 mg PO DAILY PRN PRN Reason: Allergy Symptoms valACYclovir HCL [Valtrex] 1,000 mg PO BID 7 Days #14 tab Discontinued Cephalexin [Keflex] 500 mg PO Q6HR 7 Days #28 cap Discharge Medication List Phenazopyridine [Pyridium] 200 mg PO TID #6 tablet 07/02/20 [Rx] Cetirizine HCl [Zyrtec] 10 mg PO DAILY PRN 07/04/20 [History] Escitalopram [Lexapro] 20 mg PO DAILY 07/04/20 [History] Ketorolac [Toradol] 10 mg PO Q8HR PRN 07/04/20 [History] Montelukast [Singulair] 10 mg PO DAILY PRN 07/04/20 [History] Meggan 3mg/0.02mg 1 tab PO HS 07/04/20 [History] Cefuroxime Axetil [Ceftin] 500 mg PO BID 3 Days #6 tab 07/06/20 [Rx] Famotidine [Pepcid] 20 mg PO BID #30 tab 07/06/20 [Rx] HYDROcodone/APAP 7.5-325MG [[place] 7.5-325] 1 each PO Q6H PRN #12 tab 07/06/20 [Rx] Pregabalin [Lyrica] 200 mg PO BID #40 cap 07/06/20 [Rx] Sennosides [Senokot] 8.6 mg PO DAILY #10 tablet 07/06/20 [Rx] valACYclovir HCL [Valtrex] 1,000 mg PO BID 7 Days #14 tab 07/06/20 [Rx] Follow up Appointment(s)/Referral(s): None,Stated [Primary Care Provider] - 1-2 days Activity/Diet/Wound Care/Special Instructions: Activity Limited until follow-up Follow-up with primary care provider upon discharge FLOOR CARE TECHNICIAN appointment for Thursday and follow-up Continue with antibiotics until finished Continue with Valtrex until follow-up Continue current diet Encourage fluids and rest Discharge Disposition: HOME SELF-CARE
== END 2020-07-06 12:30 | disposition home or self-care (01) ==
LOC: EC 23:16 → 4SSUR 07-04 04:06
PROVIDERS: ADMIT Hospitalist; ATTEND Hospitalist
DX: A60.04 Herpesviral vulvovaginitis (principal); R33.8 Other retention of urine; F32.9 Major depressive disorder, single episode, unspecified; R01.1 Cardiac murmur, unspecified; F41.9 Anxiety disorder, unspecified; G89.29 Other chronic pain; R10.2 Pelvic and perineal pain; Z79.1 Long term (current) use of non-steroidal anti-inflammatories (NSAID); Z79.899 Other long term (current) drug therapy; Z88.0 Allergy status to penicillin; Z88.8 Allergy status to other drugs, medicaments and biological substances; Z87.42 Personal history of other diseases of the female genital tract
CPT/HCPCS: 96376 ×4; 96361 ×2; 96365; 51701; 96375; 99284; 51798; 36415; 87529; 80053; 85025; 81001 ×2; 81025; 87086; G0378 ×3; J2405; J0696 ×2; J1170 ×2; J1885 ×3

== ENCOUNTER → 2021-07-01 | Outpatient (CLI) | payer OTHER ==
[2021-07-01 21:01] LABS: DHEA Sulfate 134.6 ug/dL (26.0-430.0)
[2021-07-01 21:30] LABS: Insulin Level 82.9 mIU/mL (3.0-25.0); Progesterone <0.2 ng/mL
[2021-07-01 22:02] LABS: Estradiol 107.2 pg/mL; T4, Free (Free Thyroxine) 1.5 ng/dL (0.80-1.80)
== END | disposition home or self-care (01) ==
LOC: LABWHC1 13:03
DX: N94.6 Dysmenorrhea, unspecified (principal); N92.0 Excessive and frequent menstruation with regular cycle; R63.5 Abnormal weight gain
CPT/HCPCS: 36415; 82627; 82670; 83525; 84144; 84403; 84439; 84443; 84480; 84482

== ENCOUNTER → 2021-09-16 | Outpatient (CLI) | payer OTHER | END | disposition home or self-care (01) | LOC: LABWHC1 14:43 | PROVIDERS: ATTEND Obstetrics & Gynecology | DX: N94.6 Dysmenorrhea, unspecified (principal); N91.4 Secondary oligomenorrhea; N92.0 Excessive and frequent menstruation with regular cycle | CPT/HCPCS: 36415; 82670; 84144 ==

== ENCOUNTER → 2021-12-11 | Outpatient (CLI) | payer OTHER ==
[2021-12-11 18:51] LABS: T4, Free (Free Thyroxine) 0.83 ng/dL (0.800-1.800)
[2021-12-11 23:03] LABS: Insulin Level 15.4 mIU/mL (3.0-25.0)
[2021-12-11 23:17] LABS: Thyroid Peroxidase Antibodies <9.0 U/mL (0.0-33.0)
== END | disposition home or self-care (01) ==
LOC: LABWHC1 11:25
PROVIDERS: ATTEND Obstetrics & Gynecology
DX: N94.6 Dysmenorrhea, unspecified (principal); N91.4 Secondary oligomenorrhea; N92.0 Excessive and frequent menstruation with regular cycle; R63.5 Abnormal weight gain; E07.9 Disorder of thyroid, unspecified
CPT/HCPCS: 36415; 82670; 83525; 84144; 84439; 84443; 84480; 84482; 86376; 86800

== ENCOUNTER 2022-02-21 08:26 | Observation (INO) | payer OTHER ==
[2022-02-21] MEDS ORDERED: MONTELUKAST 10 MG TAB PO PRN (09:06)
[2022-02-21] MEDS ORDERED: LORATADINE 10 MG TAB PO PRN (09:06)
[2022-02-21] MEDS: ESCITALOPRAM 20 MG TAB PO SCH (11:19)
[2022-02-21] MEDS: NALTREXONE 4.5 MG PO SCH (11:20)
[2022-02-21] MEDS: LIOTHYRONINE SODIUM 5 MCG TAB PO SCH (11:20)
--- NOTE | 2022-02-21 12:41 | P.CNNES ---
History of Present Illness Consult date: 02/21/22 Requesting physician: Mildred Buck Reason for Consult: Headache, papilledema History of Present Illness: Patient is a 21-year-old female who has presented with new onset headaches since 02/01/2022. Patient states on 02/01/2022 she started noticing an abrupt onset of headache pointing to the right frontal orbital region, with nausea, but no vomiting. She rated at 8/10. It mainly involving right frontal region behind the right eye. She took Excedrin migraine, and the headache improved. The headache has not resolved since then. It has been staying in the right orbital frontal region, with significant photophobia, with slight photophobia. She has been having some nausea, but had dry heaves only once 2 days ago. Patient states that the headache is persisting around 4-5/10 all the time, but every few days it goes to 8/10, which she feels like a migraine headache, which lasts for almost one day. She usually takes Excedrin Migraine for this worse headache. Since last 1 week she is noticing intermittent paresthesias of the right facial region when the headache gets worse. She felt her right eyelid was swollen. Her symptoms got worse last week. This week she is also noticing some intermittent paresthesias of the right arm as well. She has not been able to do her studies, as she is in master's degree. Patient was seen by weapons designer, who noticed her optic nerves are tilted with temporal slope/pale appearing disc due to high myopia so that is expected. Patient has significant swelling of the nasal rims. Patient was referred back to primary physician, who initiated MRI, which was scheduled for this weekend. Patient came to ER on 02/19/2022 and underwent computed tomography scan of the head, which was normal. Patient was given IV steroids, Reglan, Toradol, headaches improved significantly but not resolved, and she was discharged. That night (02/19/2022) her symptoms got further worse. Patient does not have regular headaches at all. She may get very rare migraine about once a year which may last for one day. Patient has history of endometriosis, for which she used to be on control pills, which was discontinued in February 2021. She has been on progesterone 100 g which she takes from the 15th to the the 24th of her menstrual cycle. The last time she took progesterone was from 01/14/2022 to 01/22/2022 (headache started 02/01/2022). Patient denies tobacco use, drinks alcohol very occasionally. No diabetes or hypertension. Patient does take Lexapro, thyroid medication and naltrexone for endometriosis. At present she rates her headache 6-7/10, with a lot of pressure. Patient denies any numbness or tingling at this time. No slurred speech, facial droop or complete loss of vision. Review of Systems Patient has been sleeping excessively, very tired which is very unusual for her. Denies any chest pain shortness of breath. No double vision. No fever or chills. All other 14 point of review systems reviewed unremarkable except as mentioned above in HPI. Patient denies any problem with balance or any problem with bowel or bladder control. Past Medical History Past Medical History: Thyroid Disorder Additional Past Medical History / Comment(s): endometrosis, follows DATA INTEGRATION DEVELOPER ins [place] History of Any Multi-Drug Resistant Organisms: None Reported Past Surgical History: Tonsillectomy Past Anesthesia/Blood Transfusion Reactions: No Reported Reaction Past Psychological History: Anxiety, Depression Smoking Status: Never smoker Past Alcohol Use History: Occasional Past Drug Use History: None Reported - Past Family History Mother Family Medical History: Hyperlipidemia Father Family Medical History: Hyperlipidemia Medications and Allergies Home Medications Medication Instructions Recorded Confirmed Type Cetirizine HCl [Zyrtec] 10 mg PO DAILY 07/04/20 02/21/22 History Escitalopram [Lexapro] 20 mg PO DAILY 07/04/20 02/21/22 History Montelukast [Singulair] 10 mg PO DAILY PRN 07/04/20 02/21/22 History Liothyronine Sodium [Cytomel] 10 mcg PO DAILY 02/19/22 02/21/22 History Naltrexone 4.5mg 4.5 mg PO DAILY 02/19/22 02/21/22 History Acetylcysteine [Nac] 500 mg PO BID 02/21/22 02/21/22 History [id number] 1 tab PO Q4HR PRN 02/21/22 02/21/22 History [Excedrin] Inositol 1 tab PO BID 02/21/22 02/21/22 History L.acidoph,Paracasei, B.lactis 1 cap PO DAILY 02/21/22 02/21/22 History [Probiotic] Multivitamins, Thera [Multivitamin 1 tab PO DAILY 02/21/22 02/21/22 History (formulary)] Naproxen Sodium [Aleve] 440 mg PO Q12H PRN 02/21/22 02/21/22 History Progesterone, Micronized 100 mg PO DIRECTED 02/21/22 02/21/22 History [Progesterone] Allergies Allergy/AdvReac Type Severity Reaction Status Date / Time amoxicillin trihydrate Allergy Unknown Verified 02/21/22 10:09 [From Augmentin] lansoprazole [From Prevacid] Allergy Unknown Verified 02/21/22 10:09 omeprazole [From Prilosec] Allergy Unknown Verified 02/21/22 10:09 potassium clavulanate Allergy Unknown Verified 02/21/22 10:09 [From Augmentin] Physical Examination - Vital Signs Vital Signs: Vital Signs Temp Pulse Resp BP Pulse Ox 02/21/22 09:30 98.0 F 79 16 133/83 97 Intake and Output 02/20/22 02/21/22 02/21/22 22:59 06:59 14:59 Other: Voiding Method Toilet Weight 90.718 kg Patient is a young female, in no acute distress. Patient is alert awake oriented to time place and person. Speech and language functions are normal. Attention, concentration and fund of knowledge is adequate. On cranial examination, pupils are round and reacting to light, visual garcia are full on confrontation, with no visual neglect on double simultaneous body technician/painter. Her extraocular muscles are intact with no nystagmus. Face is symmetric, tongue protrudes to the midline. Palatal elevation and sensation normal, hearing and shoulder shrug normal, facial sensation normal. Shoulder shrug normal. On muscle strength testing, there is no pronator drift and the strength is normal in arms and legs distally and proximally. Deep tendon reflexes are 1 in the upper limbs, 2 at the knees and ankles and plantars downgoing bilaterally. No clonus. Sensory to touch is equal with no neglect. Cerebellar function showed no ataxia for [id number]-[id number] testing. No dysdiadochokinesia. Tone and bulk of muscles normal. Gait normal. On general examination, there is no carotid bruit or murmur, S1-S2 audible. Abdomen is soft nontender. Chest is clear. Peripheral pulses are present. No edema. Assessment and Plan Assessment: * New-onset right frontal orbital headache with intense pressure, and some vascular features. Patient has new-onset bilateral papilledema. Patient has been on progesterone for endometriosis for last 1 year. Rule out dural venous sinus thrombosis. Rule out pseudotumor cerebri. Plan: * Patient undergoing MRI of the brain with and without contrast. * We will also add MRA of the head to rule out venous sinus thrombosis. * Further management will be based upon above test results. * Discussed with patient and her mother in detail. Thank you for the consult. Addendum: Patient underwent MRI of the brain and MRV of the head. No acute deep cerebral venous sinus thrombosis. Elongated globes with prominent CSF surrounding optic nerve sheaths. Findings could be product of idiopathic intracranial hypert ension. I had a prolonged discussion with the patient and her mother about the results of MRI, and the possibility of pseudotumor cerebri. We will hold off on Diamox, until lumbar puncture has been completed, to rule out viral meningitis. I would recommend stopping progesterone. Patient denies any recent weight gain. She was informed that losing 5-10 pound weight may help with pseudotumor cerebri. Lumbar puncture was initiated. Patient underwent lumbar puncture by anesthesia. It was performed and lateral recumbent position. Opening pressure was 31 cm water. Closing pressure was not checked. About 20 mL of spinal fluid was collected. CSF revealed 0 WBC, 0 RBC, glucose 58, protein 29 all normal. MS panel pending. Viral cultures pending. Patient started on Diamox 250 mg twice a day. Time with Patient: Greater than 30 (Complexity moderate to high. Greater than 50% time spent in counseling.)
[2022-02-21] MEDS: ACETAMINOPHEN TAB 325 MG TAB PO PRN ×2 (12:55→18:23)
--- NOTE | 2022-02-21 13:10 | MR ---
EXAMINATION TYPE: MR venography head wo con, MR brain wo/w con DATE OF EXAM: 02/21/2022 COMPARISON: CT brain 2 days ago. HISTORY: New onset Headaches, papilledema, Verify Sinus Thrombosis Standard multiplanar, multisequence MRI departmental protocol TECHNIQUE: Multiplanar, multisequence images of the brain were acquired without contrast. 2-D and 3-D reconstruc alma images are created on a independent workstation and reviewed. Multiplanar, multisequence images of the brain and brainstem is performed without and with IV contras t, utilizing 9 mL intravenous Gadavist . FINDINGS: Diffusion weighted images demonstrate no evidence of a recent infarct or other diffusion ab normality. There is no extra-axial fluid collection or significant white matter signal abnormality. The ventricular system and cisternal spaces are normal in size and appearance. The brain volume is age appropriate. Midline structures demonstrate normal morphology. The craniocervical junction appears within normal limits. Post contrast images demonstrate no abnormal enhancement or enhancing masses. The globes are elongated with areas of prominent surrounding the optic nerve sheaths bilaterally. MRV images show patent superior sagittal sinus draining into bilateral transverse sinuses and sagitt al sinuses extending into bilateral internal jugular veins. There is poor visualization of inferior s agittal sinus along with straight sinus and internal cerebral vein of Herrera but these are better seen on postcontrast sagittal images 81 through 86 for reference. No abnormal T1 signal to suggest venous thrombus identified. IMPRESSION: 1. No acute deep cerebral venous thrombus identified. 2. Elongated globes with prominent CSF surrounding optic nerve sheaths. Findings could be product of idiopathic intracranial hypertension.
--- NOTE | 2022-02-21 13:28 | P.HPIM ---
History of Present Illness H&P Date: 02/21/22 HISTORY OF PRESENT ILLNESS This is a 21-year-old female patient recently established with Dr. Man with past medical history of endometriosis and hypothyroidism being treated by [facility] specialist and was constant with history of treatment with progesterone for endometriosis. Patient gives history of 2-1/2 week of headache and migraine- type on the right side of her head. She tried Aleve and Excedrin but on Thursday she thought her right eye was swollen and had a lot of pressure behind her right eye. On Thursday she saw her instructional consultant and was told that the pressure in her eye was normal but there was optic nerve swelling and possible papilledema bilaterally and recommended follow-up. Patient called the office and was seen by Alexa Mejia NP scheduled for an MRI of the brain on the weekend. Patient states that pain worsened over that night and she came into the emergency center initially on 02/19. CAT scan of the brain was done which showed no acute intracranial hemorrhage or midline shift. She was provided 1 dose of dexamethasone 8 mg IV push, Toradol, Tylenol, Reglan and 1 L IV fluids and was discharged home, instructed to follow-up with her primary care doctor and MRI that was scheduled. Patient attempted to make an appointment with Dr. Ozzie tracey first available appointment was in March and they reached out to a physician that was a friend who then contacted Dr. Arteaga and is currently contacted Dr. Man regarding the patient's symptoms and that patient's mother wanted her to be directly admitted. Arrangements were made this morning for patient to be directly admitted to the hospital for further evaluation. She has been seen by neurology and plan is for MRSA of the brain, MRI with and without contrast. Patient's home medications of been resumed and Tylenol added for headache. REVIEW OF SYSTEMS Constitutional: No fever, no chills, no night sweats. No weight change. No weakness, fatigue or lethargy. No daytime sleepiness. EENT: Reports right-sided headache. No blurred vision or double vision, no loss of vision. No loss of Hearing, no ringing in the ears, no dizziness. No nasal drainage or congestion. No epistaxis. No sore throat. Lungs: No shortness of breath, cough, no sputum production. No wheezing. Cardiovascular: No chest pain, no lower extremity edema. No palpitations. No paroxysmal nocturnal dyspnea. No orthopnea. No lightheadedness or dizziness. No syncopal episodes. Abdominal: No abdominal pain. No nausea, vomiting. No diarrhea. No constipation. No bloody or tarry stools. No loss of appetite. Genitourinary: No dysuria, increased frequency, urgency. No urinary retention. Musculoskeletal: No myalgias. No muscle weakness, no gait dysfunction, no frequent falls. No back pain. No neck pain. Integumentary: No wounds, no lesions. No rash or pruritus. No unusual bruising. No change in hair or nails. Neurologic: No aphasia. No facial droop. No change in mentation. No head injury. No headache. No paralysis. No paresthesia. Psychiatric: No depression. No anxiety. No mood swings. Endocrine: No abnormal blood sugars. No weight change. No excessive sweating or thirst. No cold intolerance. SOCIAL HISTORY Patient is a lifelong nonsmoker, rare alcohol use, no marijuana or illicit drug use. FAMILY HISTORY Mother is alive with no major medical problems at age 55. Father is alive at age 62 with history of hyperlipidemia. Patient does not have any siblings. She does not have any children. PHYSICAL EXAMINATION Gen: This is a 21-year-old female. She is resting in bed appears to be comfortable and in no acute distress. Mother is at bedside HEENT: Head is atraumatic, normocephalic. Pupils equal, round. Sclerae is anicteric. NECK: Supple. No JVD. No lymphadenopathy. No thyromegaly. LUNGS: Clear to auscultation. No wheezes or rhonchi. No intercostal retractions. HEART: Regular rate and rhythm. No murmur. ABDOMEN: Soft. Bowel sounds are present. No masses. No tenderness. EXTREMITIES: No pedal edema. No calf tenderness. NEUROLOGICAL: Patient is awake, alert and oriented x3. Cranial nerves 2 through 12 are grossly intact. ASSESSMENT AND PLAN 1. Right sided frontal and orbital headache. Consult with nephrology appreciated. Patient is scheduled for MRI of the brain with and without contrast, MRA of the brain to rule out venous sinus thrombosis. Continue Tylenol as needed for headache. 2. New onset bilateral papilledema. 3. History of endometriosis. Patient states she takes Naltrexone 4.5 mg daily. 4. Hypothyroidism. Continue Cytomel 10 g daily. 5. Recurrent depression. Continue Lexapro 20 mg daily. 6. Seasonal ALLERGIES. Continue Claritin as needed, Singulair as needed. Patient placed as observation status. DISCHARGE PLAN Home. Impression and plan of care have been directed as dictated by the signing physician. Mildred Buck nurse practitioner acting as scribe for signing physician. Past Medical History Past Medical History: No Reported History Additional Past Medical History / Comment(s): heart murmur, PID History of Any Multi-Drug Resistant Organisms: None Reported Past Surgical History: Tonsillectomy Past Anesthesia/Blood Transfusion Reactions: No Reported Reaction Past Psychological History: Anxiety, Depression Smoking Status: Never smoker Past Alcohol Use History: Occasional Past Drug Use History: None Reported - Past Family History Mother Family Medical History: No Reported History Father Family Medical History: Hyperlipidemia Medications and Allergies Home Medications Medication Instructions Recorded Confirmed Type Cetirizine HCl [Zyrtec] 10 mg PO DAILY 07/04/20 02/21/22 History Escitalopram [Lexapro] 20 mg PO DAILY 07/04/20 02/21/22 History Montelukast [Singulair] 10 mg PO DAILY PRN 07/04/20 02/21/22 History Liothyronine Sodium [Cytomel] 10 mcg PO DAILY 02/19/22 02/21/22 History Naltrexone 4.5mg 4.5 mg PO DAILY 02/19/22 02/21/22 History Acetylcysteine [Nac] 500 mg PO BID 02/21/22 02/21/22 History [id number] 1 tab PO Q4HR PRN 02/21/22 02/21/22 History [Excedrin] Inositol 1 tab PO BID 02/21/22 02/21/22 History L.acidoph,Paracasei, B.lactis 1 cap PO DAILY 02/21/22 02/21/22 History [Probiotic] Multivitamins, Thera [Multivitamin 1 tab PO DAILY 02/21/22 02/21/22 History (formulary)] Naproxen Sodium [Aleve] 440 mg PO Q12H PRN 02/21/22 02/21/22 History Progesterone, Micronized 100 mg PO DIRECTED 02/21/22 02/21/22 History [Progesterone] Allergies Allergy/AdvReac Type Severity Reaction Status Date / Time amoxicillin trihydrate Allergy Unknown Verified 02/21/22 10:09 [From Augmentin] lansoprazole [From Prevacid] Allergy Unknown Verified 02/21/22 10:09 omeprazole [From Prilosec] Allergy Unknown Verified 02/21/22 10:09 potassium clavulanate Allergy Unknown Verified 02/21/22 10:09 [From Augmentin]
[2022-02-21] MEDS: KETOROLAC 15 MG/ML 1 ML VIAL IVP PRN (14:15)
--- NOTE | 2022-02-21 19:23 | P.ANPRN ---
Procedure Note - Anesthesia - Epidural/Spinal Spinal Time Out Performed: Yes Date of Procedure: 02/21/22 Procedure Start Time: 19:02 Procedure Stop Time: 19:17 Location of Patient: PreOp Preparation: Sterile Prep Position: Left Lateral Needle Guage: 22 Blood Aspirated: No Pain Paresthesia on Injection Noted: No Events: Uneventful and Well Tolerated
--- NOTE | 2022-02-21 19:27 | P.PN ---
Progress Note - Text 02/21/22 21-year-old female's with a diagnosis of pseudotumor cerebri, consulted by Dr. Frey for a lp. Patient was brought down to the recovery room history was taken risks and benefits were discussed and the consent was checked patient was positioned in a lateral position, after sterile prep and drape 22-gauge needle was used to locate a spinal space at L3 4. Opening pressure was 31 mmHg. After that 20 mL of CSF was drained the injection site was cleaned and dressing applied
[2022-02-21] MEDS: HYDROcodone/APAP 5-325MG 1 EACH TAB PO PRN (20:27)
[2022-02-21] MEDS: acetaZOLAMIDE 250 MG TAB PO SCH (21:25)
[2022-02-21 23:25] LABS: Glucose,CSF 58 mg/dL (40-70); Total Protein,CSF 29 mg/dL (12-60)
[2022-02-22] MEDS: ONDANSETRON 4 MG/2 ML VIAL IVP PRN ×3 (00:21→17:34)
[2022-02-22] MEDS: KETOROLAC 15 MG/ML 1 ML VIAL IVP PRN ×4 (00:22→21:06)
[2022-02-22 03:31] LABS: Appearance,CSF Clear; CSF Tube Number 2; Nucleated Cells, CSF 0 u/L (0-5); Red Blood Cell,CSF 0 u/L (0-10)
[2022-02-22] MEDS: ACETAMINOPHEN TAB 325 MG TAB PO PRN (05:46)
[2022-02-22] MEDS: ESCITALOPRAM 20 MG TAB PO SCH (07:58)
[2022-02-22] MEDS: LIOTHYRONINE SODIUM 5 MCG TAB PO SCH (07:58)
[2022-02-22] MEDS: acetaZOLAMIDE 250 MG TAB PO SCH ×2 (07:58→20:22)
[2022-02-22] MEDS: NALTREXONE 4.5 MG PO SCH (07:58)
[2022-02-22] MEDS ORDERED: LIOTHYRONINE SODIUM 5 MCG TAB PO SCH (09:00)
[2022-02-22] MEDS: HYDROcodone/APAP 5-325MG 1 EACH TAB PO PRN (09:14)
--- NOTE | 2022-02-22 10:57 | P.PN ---
Subjective Progress Note Date: 02/22/22 HISTORY OF PRESENT ILLNESS This is a 21-year-old female patient recently established with Dr. Man with past medical history of endometriosis and hypothyroidism being treated by [employer] specialist and was constant with history of treatment with progesterone for endometriosis. Patient gives history of 2-1/2 week of headache and migraine- type on the right side of her head. She tried Aleve and Excedrin but on Thursday she thought her right eye was swollen and had a lot of pressure behind her right eye. On Thursday she saw her labor operator and was told that the pressure in her eye was normal but there was optic nerve swelling and possible papilledema bilaterally and recommended follow-up. Patient called the office and was seen by Alexa Mejia NP scheduled for an MRI of the brain on the weekend. Patient states that pain worsened over that night and she came into the [facility] center initially on 02/19. CAT scan of the brain was done which showed no acute intracranial hemorrhage or midline shift. She was provided 1 dose of dexamethasone 8 mg IV push, Toradol, Tylenol, Reglan and 1 L IV fluids and was discharged home, instructed to follow-up with her primary care doctor and MRI that was scheduled. Patient attempted to make an appointment with Dr. Horne but first available appointment was in March and they reached out to a physician that was a friend who then contacted Dr. Arteaga and is currently contacted Dr. Man regarding the patient's symptoms and that patient's mother wanted her to be directly admitted. Arrangements were made this morning for patient to be directly admitted to the hospital for further evaluation. She has been seen by neurology and plan is for MRSA of the brain, MRI with and without contrast. Patient's home medications of been resumed and Tylenol added for headache. 02/22: patient is found resting in bed complaining of a headache and nausea post spinal tap. Patient had a spinal tap approximately at 7:00 last night she is up to the bathroom multiple times in sitting up at the site of the bed. Patient is complaining of a significant headache with nausea. Patient will be started on Fioricet. MRI of the brain shows no acute deep venous thrombosis. Elongated globes with prominent CSS surrounding optic nerve sheath. Findings could be product of idiopathic intracranial hypertension. Diamox. patient is afebrile, heart rate 78, respirations 16, blood pressure 109/65, pulse ox 98% on room air. REVIEW OF SYSTEMS Constitutional: No fever, no chills, no night sweats. No weight change. No weakness, fatigue or lethargy. No daytime sleepiness. EENT: Reports right-sided headache. No blurred vision or double vision, no loss of vision. No loss of Hearing, no ringing in the ears, no dizziness. No nasal drainage or congestion. No epistaxis. No sore throat. Lungs: No shortness of breath, cough, no sputum production. No wheezing. Cardiovascular: No chest pain, no lower extremity edema. No palpitations. No paroxysmal nocturnal dyspnea. No orthopnea. No lightheadedness or dizziness. No syncopal episodes. Abdominal: No abdominal pain. No nausea, vomiting. No diarrhea. No constipation. No bloody or tarry stools. No loss of appetite. Genitourinary: No dysuria, increased frequency, urgency. No urinary retention. Musculoskeletal: No myalgias. No muscle weakness, no gait dysfunction, no frequent falls. No back pain. No neck pain. Integumentary: No wounds, no lesions. No rash or pruritus. No unusual bruising. No change in hair or nails. Neurologic: No aphasia. No facial droop. No change in mentation. No head injury. No headache. No paralysis. No paresthesia. Psychiatric: No depression. No anxiety. No mood swings. Endocrine: No abnormal blood sugars. No weight change. No excessive sweating or thirst. No cold intolerance. SOCIAL HISTORY Patient is a lifelong nonsmoker, rare alcohol use, no marijuana or illicit drug use. FAMILY HISTORY Mother is alive with no major medical problems at age 55. Father is alive at age 62 with history of hyperlipidemia. Patient does not have any siblings. She does not have any children. PHYSICAL EXAMINATION Gen: This is a 21-year-old female. She is resting in bed appears to be comfortable and in no acute distress. Mother is at bedside HEENT: Head is atraumatic, normocephalic. Pupils equal, round. Sclerae is anicteric. NECK: Supple. No JVD. No lymphadenopathy. No thyromegaly. LUNGS: Clear to auscultation. No wheezes or rhonchi. No intercostal retractions. HEART: Regular rate and rhythm. No murmur. ABDOMEN: Soft. Bowel sounds are present. No masses. No tenderness. EXTREMITIES: No pedal edema. No calf tenderness. NEUROLOGICAL: Patient is awake, alert and oriented x3. Cranial nerves 2 through 12 are grossly intact. ASSESSMENT AND PLAN 1. Right sided frontal and orbital headache. Consult with nephrology appreciated. MRI/MRA results noted above. Fioricet ordered for spinal headache. Patient instructed to lie in bed. Only up to use the bathroom. We will hold the Tylenol at this time. melatonin 6 mg to help with sleep 2. New onset bilateral papilledema. 3. History of endometriosis. Patient states she takes Naltrexone 4.5 mg daily. 4. Hypothyroidism. Continue Cytomel 10 g daily. 5. Recurrent depression. Continue Lexapro 20 mg daily. 6. Nausea. Continue Zofran 7. Seasonal ALLERGIES. Continue Claritin as needed, Singulair as needed. Patient placed as observation status. DISCHARGE PLAN Home. Impression and plan of care have been directed as dictated by the signing physician. Liana Tse nurse practitioner acting as scribe for signing physician. Objective - Vital Signs Vital signs: Vital Signs Temp 98.3 F 02/22/22 08:00 Pulse 78 02/22/22 08:00 Resp 16 02/22/22 08:00 BP 109/65 02/22/22 08:00 Pulse Ox 98 02/22/22 08:00 Intake & Output 02/21/22 02/22/22 02/22/22 18:59 06:59 18:59 Intake Total 10 Output Total 800 Balance -790 Weight 90.718 kg Intake: IV 10 0.9 10 Output: Urine 800 Other: Voiding Method Toilet Toilet # Voids 1
[2022-02-22] MEDS: BUTALB/APAP/CAFF 50-325-40MG TAB PO PRN ×3 (12:30→20:21)
[2022-02-22] MEDS: SODIUM CHLORIDE 0.9% 1,000 ML IV SCH ×2 (15:40→20:23)
[2022-02-22] MEDS: MELATONIN 3 MG TABLET PO SCH (20:21)
[2022-02-23] MEDS: BUTALB/APAP/CAFF 50-325-40MG TAB PO PRN ×5 (04:24→20:08)
[2022-02-23] MEDS: SODIUM CHLORIDE 0.9% 1,000 ML IV SCH ×3 (06:07→20:13)
[2022-02-23] MEDS: LIOTHYRONINE SODIUM 5 MCG TAB PO SCH (08:31)
[2022-02-23] MEDS: NALTREXONE 4.5 MG PO SCH (08:32)
[2022-02-23] MEDS: ESCITALOPRAM 20 MG TAB PO SCH (08:32)
[2022-02-23] MEDS: acetaZOLAMIDE 250 MG TAB PO SCH ×2 (08:32→20:07)
--- NOTE | 2022-02-23 09:21 | P.PN ---
Subjective Progress Note Date: 02/22/22 Patient was seen for a follow-up. Patient underwent lumbar puncture yesterday. The opening pressure was 31 cm water. Patient says her headache has got worse after the lumbar puncture. It involves the base of the skull to behind the eye. Patient has not noticed any improvement in her symptoms. At present complaining of headache 7/10 while laying down. Patient did not notice any positional component. However later during the day, I received call from the nurse, that the headache gets 10 times worse when she is standing up. She probably has developed post-spinal headache on top of headache from pseudotumor cerebri. Also complains of low back pain since the lumbar puncture. Objective - Vital Signs Vital signs: Vital Signs Temp 98.1 F 02/23/22 08:35 Pulse 72 02/23/22 08:35 Resp 16 02/23/22 08:35 BP 104/54 02/23/22 08:35 Pulse Ox 97 02/23/22 08:35 Intake & Output 02/22/22 02/23/22 02/23/22 18:59 06:59 18:59 Intake Total 300 Output Total 1300 600 Balance -1300 -300 Intake: Oral 300 Output: Urine 1300 600 Other: Voiding Method Toilet Toilet # Voids 1 - Exam Patient's mental status, speech and language functions are normal. Cranial nerves are normal strength normal. - Labs Labs: Microbiology - Last 24 Hours (Table) 02/21/22 19:17 CSF Gram Stain - Preliminary Cerebral Spinal Fluid CSF Culture - Preliminary Assessment and Plan Assessment: * New-onset right frontal orbital headache with intense pressure, with p apilledema. CSF showed elevated intracranial pressure, suggestive of benign intracranial hypertension or pseudotumor cerebri. Patient has been on progesterone for endometriosis for last 1 year. No evidence of dural venous sinus thrombosis. Patient denies any recent weight gain. Plan: * Patient's headaches have not improved with lumbar puncture. Now she has developed post-spinal headache. Patient will be started on IV fluids normal saline at 100 mL per hour. Start Fioricet. If no improvement by tomorrow, patient will need epidural blood patch. * MRI of the brain and MRV of the head showed no acute deep cerebral venous sinus thrombosis. Elongated globes with prominent CSF surrounding optic nerve sheaths. Findings could be product of idiopathic intracranial hypertension. * Continue Diamox. * Lumbar puncture was initiated. Patient underwent lumbar puncture by anesthesia. It was performed and lateral recumbent position. Opening pressure was 31 cm water. Closing pressure was not checked. About 20 mL of spinal fluid was collected. * CSF revealed 0 WBC, 0 RBC, glucose 58, protein 29 all normal. MS panel pending. Viral cultures pending. * Patient neurologically clear for discharge, whenever the headache becomes tolerable/resolves. * Recommend patient follow up with a neurologist and technical sales support manager(or a neuro- technical sales support manager).
--- NOTE | 2022-02-23 10:31 | P.PN ---
Subjective Progress Note Date: 02/23/22 HISTORY OF PRESENT ILLNESS This is a 21-year-old female patient recently established with Dr. Man with past medical history of endometriosis and hypothyroidism being treated by BRAIN WAVE TECHNICIAN specialist and was constant with history of treatment with progesterone for endometriosis. Patient gives history of 2-1/2 week of headache and migraine- type on the right side of her head. She tried Aleve and Excedrin but on Thursday she thought her right eye was swollen and had a lot of pressure behind her right eye. On Thursday she saw her casino cage cashier and was told that the pressure in her eye was normal but there was optic nerve swelling and possible papilledema bilaterally and recommended follow-up. Patient called the office and was seen by Alexa Mejia NP scheduled for an MRI of the brain on the weekend. Patient states that pain worsened over that night and [facility] CAT scan of the brain was done which showed no acute intracranial hemorrhage or midline shift. She was provided 1 dose of dexamethasone 8 mg IV push, Toradol, Tylenol, Reglan and 1 L IV fluids and was discharged home, instructed to follow-up with her primary care doctor and MRI that was scheduled. Patient attempted to make an appointment with Dr. Horne but first available appointment was in March and they reached out to a physician that was a friend who then contacted Dr. Arteaga and is currently contacted Dr. Man regarding the patient's symptoms and that patient's mother wanted her to be directly admitted. Arrangements were made this morning for patient to be directly admitted to the hospital for further evaluation. She has been seen by neurology and plan is for MRSA of the brain, MRI with and without contrast. Patient's home medications of been resumed and Tylenol added for headache. 02/22: patient is found resting in bed complaining of a headache and nausea post spinal tap. Patient had a spinal tap approximately at 7:00 last night she is up to the bathroom multiple times in sitting up at the site of the bed. Patient is complaining of a significant headache with nausea. Patient will be started on Fioricet. MRI of the brain shows no acute deep venous thrombosis. Elongated globes with prominent CSS surrounding optic nerve sheath. Findings could be product of idiopathic intracranial hypertension. Diamox. patient is afebrile, heart rate 78, respirations 16, blood pressure 109/65, pulse ox 98% on room air. 02/23: She is found sitting up in bed complaining of a spinal headache. Patient states that the pain is worse when she is up ambulating within the room. Pain relief with Fioricet and positioning. Patient states that her sleep was better last night compared to the night before. Patient continues to have nausea with ambulation. Menses started today. Positive diarrhea noted. Patient remains afebrile, heart rate 72 respirations 16 blood pressure 104/54 97% on room air. REVIEW OF SYSTEMS Constitutional: No fever, no chills, no night sweats. No weight change. No weakness, fatigue or lethargy. No daytime sleepiness. EENT: Reports right-sided headache. No blurred vision or double vision, no loss of vision. No loss of Hearing, no ringing in the ears, no dizziness. No nasal drainage or congestion. No epistaxis. No sore throat. Lungs: No shortness of breath, cough, no sputum production. No wheezing. Cardiovascular: No chest pain, no lower extremity edema. No palpitations. No paroxysmal nocturnal dyspnea. No orthopnea. No lightheadedness or dizziness. No syncopal episodes. Abdominal: No abdominal pain. No nausea, vomiting. No diarrhea. No constipation. No bloody or tarry stools. No loss of appetite. Genitourinary: No dysuria, increased frequency, urgency. No urinary retention. Musculoskeletal: No myalgias. No muscle weakness, no gait dysfunction, no frequent falls. No back pain. No neck pain. Integumentary: No wounds, no lesions. No rash or pruritus. No unusual bruising. No change in hair or nails. Neurologic: No aphasia. No facial droop. No change in mentation. No head injury. No headache. No paralysis. No paresthesia. Psychiatric: No depression. No anxiety. No mood swings. Endocrine: No abnormal blood sugars. No weight change. No excessive sweating or thirst. No cold intolerance. PHYSICAL EXAMINATION Gen: This is a 21-year-old female. She is resting in bed appears to be comfortable and in no acute distress. Mother is at bedside HEENT: Head is atraumatic, normocephalic. Pupils equal, round. Sclerae is anicteric. NECK: Supple. No JVD. No lymphadenopathy. No thyromegaly. LUNGS: Clear to auscultation. No wheezes or rhonchi. No intercostal retractions. HEART: Regular rate and rhythm. No murmur. ABDOMEN: Soft. Bowel sounds are present. No masses. No tenderness. EXTREMITIES: No pedal edema. No calf tenderness. NEUROLOGICAL: Patient is awake, alert and oriented x3. Cranial nerves 2 through 12 are grossly intact. ASSESSMENT AND PLAN 1. Right sided frontal and orbital headache. Consult with nephrology appreciated. MRI/MRA results noted above. Fioricet ordered for spinal headache. Patient instructed to lie in bed. Only up to use the bathroom. We will hold the Tylenol at this time. melatonin 6 mg to help with sleep 2. New onset bilateral papilledema. 3. History of endometriosis. Patient states she takes Naltrexone 4.5 mg daily. 4. Hypothyroidism. Continue Cytomel 10 g daily. 5. Recurrent depression. Continue Lexapro 20 mg daily. 6. Nausea. Continue Zofran 7. Seasonal ALLERGIES. Continue Claritin as needed, Singulair as needed. Patient placed as observation status. DISCHARGE PLAN Home possibly tomorrow Impression and plan of care have been directed as dictated by the signing physician. Liana Tse nurse practitioner acting as scribe for signing physician. Objective - Vital Signs Vital signs: Vital Signs Temp 98.1 F 02/23/22 08:35 Pulse 72 02/23/22 08:35 Resp 16 02/23/22 08:35 BP 104/54 02/23/22 08:35 Pulse Ox 97 02/23/22 08:35 Intake & Output 02/22/22 02/23/22 02/23/22 18:59 06:59 18:59 Intake Total 300 Output Total 1300 600 Balance -1300 -300 Intake: Oral 300 Output: Urine 1300 600 Other: Voiding Method Toilet Toilet Toilet # Voids 1 - Labs Labs: Microbiology - Last 24 Hours (Table) 02/21/22 19:17 CSF Gram Stain - Preliminary Cerebral Spinal Fluid CSF Culture - Preliminary
[2022-02-23] MEDS: KETOROLAC 15 MG/ML 1 ML VIAL IVP PRN ×3 (10:37→23:11)
[2022-02-23] MEDS: MELATONIN 3 MG TABLET PO SCH (20:07)
[2022-02-23] MEDS: ONDANSETRON 4 MG/2 ML VIAL IVP PRN (20:50)
[2022-02-24] MEDS: ACETAMINOPHEN TAB 325 MG TAB PO PRN (03:29)
[2022-02-24] MEDS: SODIUM CHLORIDE 0.9% 1,000 ML IV SCH ×2 (06:15→20:45)
[2022-02-24] MEDS ORDERED: LORazepam 2 MG/ML INJ IV STA (06:53)
[2022-02-24] MEDS: KETOROLAC 15 MG/ML 1 ML VIAL IVP PRN (08:35)
--- NOTE | 2022-02-24 08:55 | P.DS ---
Providers Date of admission: 02/21/22 08:26 Expected date of discharge: 02/24/22 Attending physician: Eddie Man Consults: 02/21/22 09:04 Consult Physician Routine Consulting Provider: Sanjuana Degroot Consult Reason/Comments: BALL, papilledema Do you want consulting provider notified?: Yes 02/21/22 13:39 Consult to Anesthesia Routine Consulting Provider: Anesthesia,Services Consult Reason/Comments: Newly dxed ?pseudotumor cerebri, plz ck open pressure, plz drain 20 cc CSF 02/24/22 07:05 Consult to Anesthesia Stat Consulting Provider: Anesthesia,Services Consult Reason/Comments: Post-spinal tap headache, for epidural blood patch Primary care physician: Eddie Donovan [facility] Course: HISTORY OF PRESENT ILLNESS This is a 21-year-old female patient recently established with Dr. Man with past medical history of endometriosis and hypothyroidism being treated by ALL AROUND GEAR MACHINE OPERATOR specialist and was constant with history of treatment with progesterone for endometriosis. Patient gives history of 2-1/2 week of headache and migraine- type on the right side of her head. She tried Aleve and Excedrin but on Thursday she thought her right eye was swollen and had a lot of pressure behind her right eye. On Thursday she saw her hi low truck driver and was told that the pressure in her eye was normal but there was optic nerve swelling and possible papilledema bilaterally and recommended follow-up. Patient called the office and was seen by Alexa Mejia CLINICAL NURSING ASSISTANT scheduled for an MRI of the brain on the weekend. Patient states that pain worsened over that night and she came into the [facility] initially on 02/19. CAT scan of the brain was done which showed no acute intracranial hemorrhage or midline shift. She was provided 1 dose of dexamethasone 8 mg IV push, Toradol, Tylenol, Reglan and 1 L IV fluids and was discharged home, instructed to follow-up with her primary care doctor and MRI that was scheduled. Patient attempted to make an appointment with Dr. Horne but first available appointment was in March and they reached out to a physician that was a friend who then contacted Dr. Arteaga and is currently contacted Dr. Man regarding the patient's symptoms and that patient's mother wanted her to be directly admitted. Arrangements were made this morning for patient to be directly admitted to the hospital for further evaluation. She has been seen by neurology and plan is for MRSA of the brain, MRI with and without contrast. Patient's home medications of been resumed and Tylenol added for headache. 02/22: patient is found resting in bed complaining of a headache and nausea post spinal tap. Patient had a spinal tap approximately at 7:00 last night she is up to the bathroom multiple times in sitting up at the site of the bed. Patient is complaining of a significant headache with nausea. Patient will be started on Fioricet. MRI of the brain shows no acute deep venous thrombosis. Elongated globes with prominent CSS surrounding optic nerve sheath. Findings could be product of idiopathic intracranial hypertension. Diamox. patient is afebrile, heart rate 78, respirations 16, blood pressure 109/65, pulse ox 98% on room air. 02/23: She is found sitting up in bed complaining of a spinal headache. Patient states that the pain is worse when she is up ambulating within the room. Pain relief with Fioricet and positioning. Patient states that her sleep was better last night compared to the night before. Patient continues to have nausea with ambulation. Menses started today. Positive diarrhea noted. Patient remains afebrile, heart rate 72 respirations 16 blood pressure 104/54 97% on room air. 02/24: Patient is complaining of spinal headache and is scheduled for blood patch today. She states she is fairly comfortable when she is laying down but when she gets up she develops headache. Otherwise patient is doing well and will plan on discharging home later this afternoon. Patient will be continued on Diamox and a prescription for Fioricet will be sent to her pharmacy. Neurology is cleared the patient for discharge. Recommend follow-up with neurologist and radial arm saw operator or a neuro-radial arm saw operator. Patient will be discharged today in stable condition. DISCHARGE DIAGNOSES 1. Right sided frontal and orbital headache. 2. New onset bilateral papilledema. 3. Elevated intracranial pressures suggestive of benign intracranial hypert ension or pseudotumor cerebri. 4. Post spinal headache. Blood patch. 5. History of endometriosis. 6. Hypothyroidism. 7. Recurrent depression. 8. Nausea. Continue Zofran 9. Seasonal ALLERGIES. DISCHARGE PLAN Home after blood patch Greater than 35 minutes was utilized and coordinating patient's discharge. Impression and plan of care have been directed as dictated by the signing phys ician. Mildred Buck nurse practitioner acting as scribe for signing physician. Patient Condition at Discharge: Good Plan - Discharge Summary Discharge Rx Participant: No New Discharge Prescriptions: New Butalb/APAP/Caff 50-325-40Mg [Fioricet 50-325-40] 1 each PO Q4HR PRN #20 tab PRN Reason: Headache acetaZOLAMIDE [Diamox] 250 mg PO BID #60 tab Continue Cetirizine HCl [Zyrtec] 10 mg PO DAILY Escitalopram [Lexapro] 20 mg PO DAILY Montelukast [Singulair] 10 mg PO DAILY PRN PRN Reason: Allergy Symptoms Naltrexone 4.5mg 4.5 mg PO DAILY Multivitamins, Thera [Multivitamin (formulary)] 1 tab PO DAILY [id number] [phone] [Excedrin] 1 tab PO Q4HR PRN PRN Reason: Migraine Headache Liothyronine Sodium [Cytomel] 10 mcg PO DAILY L.acidoph,Paracasei, B.lactis [Probiotic] 1 cap PO DAILY Acetylcysteine [Nac] 500 mg PO BID Naproxen Sodium [Aleve] 440 mg PO Q12H PRN PRN Reason: Pain Progesterone, Micronized [Progesterone] 100 mg PO DIRECTED Inositol 1 tab PO BID Discharge Medication List Cetirizine HCl [Zyrtec] 10 mg PO DAILY 07/04/20 [History] Escitalopram [Lexapro] 20 mg PO DAILY 07/04/20 [History] Montelukast [Singulair] 10 mg PO DAILY PRN 07/04/20 [History] Liothyronine Sodium [Cytomel] 10 mcg PO DAILY 02/19/22 [History] Naltrexone 4.5mg 4.5 mg PO DAILY 02/19/22 [History] Acetylcysteine [Nac] 500 mg PO BID 02/21/22 [History] [id number] [phone] [Excedrin] 1 tab PO Q4HR PRN 02/21/22 [History] Inositol 1 tab PO BID 02/21/22 [History] L.acidoph,Paracasei, B.lactis [Probiotic] 1 cap PO DAILY 02/21/22 [History] Multivitamins, Thera [Multivitamin (formulary)] 1 tab PO DAILY 02/21/22 [History] Naproxen Sodium [Aleve] 440 mg PO Q12H PRN 02/21/22 [History] Progesterone, Micronized [Progesterone] 100 mg PO DIRECTED 02/21/22 [History] Butalb/APAP/Caff 50-325-40Mg [Fioricet 50-325-40] 1 each PO Q4HR PRN #20 tab 02/24/22 [Rx] acetaZOLAMIDE [Diamox] 250 mg PO BID #60 tab 02/24/22 [Rx] Follow up Appointment(s)/Referral(s): Eddie Man MD [Primary Care Provider] - 1 Week Discharge Disposition: HOME SELF-CARE
[2022-02-24] MEDS: ESCITALOPRAM 20 MG TAB PO SCH (09:28)
[2022-02-24] MEDS: LIOTHYRONINE SODIUM 5 MCG TAB PO SCH (09:28)
[2022-02-24] MEDS: acetaZOLAMIDE 250 MG TAB PO SCH ×2 (09:28→18:50)
[2022-02-24] MEDS: NALTREXONE 4.5 MG PO SCH (10:19)
--- NOTE | 2022-02-24 10:36 | P.PN ---
Subjective Progress Note Date: 02/23/22 Patient was seen for a follow-up. Patient's mother was also present today. Patient has developed a positional headache. When she is laying down it is about 5/10. However as soon as she gets up and starts walking, it goes up to 8- 9/10. Fioricet is helping. Or laying down helps. No new focal symptoms. Patient's lumbar puncture revealed opening pressure was 31 cm water. Objective - Vital Signs Vital signs: Vital Signs Temp 98 F 02/24/22 08:20 Pulse 67 02/24/22 08:20 Resp 18 02/24/22 08:20 BP 113/70 02/24/22 08:20 Pulse Ox 98 02/24/22 08:20 Intake & Output 02/23/22 02/24/22 02/24/22 18:59 06:59 18:59 Output Total 3000 900 Balance -3000 -900 Output: Urine 3000 900 Other: Voiding Method Toilet Toilet Toilet # Voids 2 - Exam Patient's mental status, speech and language functions are normal. Cranial nerves are normal strength normal. Reflexes are symmetric. Plantars downgoing. - Labs Labs: Microbiology - Last 24 Hours (Table) 02/21/22 19:17 CSF Gram Stain - Preliminary Cerebral Spinal Fluid CSF Culture - Preliminary Assessment and Plan Assessment: * New-onset right frontal orbital headache with intense pressure, with papilledema. CSF showed elevated intracranial pressure, suggestive of benign intracranial hypertension or pseudotumor cerebri. Patient has been on progesterone for endometriosis for last 1 year. No evidence of dural venous sinus thrombosis. Patient denies any recent weight gain. Plan: * Patient has developed post-spinal tap headache. Patient wants to observe for 1 more day. If the headache does not go away, she will undergo epidural blood patch in the morning. * MRI of the brain and MRV of the head showed no acute deep cerebral venous sinus thrombosis. Elongated globes with prominent CSF surrounding optic nerve sheaths. Findings could be product of idiopathic intracranial hypertension. * Continue Diamox. * Lumbar puncture was performed by anesthesia in the lateral recumbent position. Opening pressure was 31 cm water. Closing pressure was not checked. About 20 mL of spinal fluid was collected. * CSF revealed 0 WBC, 0 RBC, glucose 58, protein 29 all normal. MS panel pending. Viral cultures pending. * Patient neurologically clear for discharge, whenever the headache becomes tolerable/resolves. * Recommend patient follow up with a neurologist and digital media director(or a neuro- digital media director).
[2022-02-24] MEDS ORDERED: SODIUM CHLORIDE 0.9% 300 ML IV ONE (10:50)
[2022-02-24] MEDS ORDERED: MIDAZOLAM 2 MG/2 ML VIAL IVP ONE (11:05)
[2022-02-24] MEDS ORDERED: fentaNYL (PF) 50 MCG/ML 2 ML AMP IVP ONE ×2 (11:05→11:10)
[2022-02-24] MEDS ORDERED: ONDANSETRON 4 MG/2 ML VIAL IVP ONE (11:24)
[2022-02-24] MEDS: BUTALB/APAP/CAFF 50-325-40MG TAB PO PRN ×2 (14:14→20:48)
[2022-02-24] MEDS ORDERED: WATER IV SCH ×2 (16:45)
[2022-02-24] MEDS ORDERED: DEXTROSE 5% IV SCH ×2 (16:45)
[2022-02-24] MEDS ORDERED: CAFFEINE CITRATE IV SCH ×2 (16:45)
--- NOTE | 2022-02-24 17:13 | P.PN ---
Subjective Progress Note Date: 02/24/22 I am seeing the patient for the first time for neurological management. Please refer to Dr. Degroot's notes for further details. It seems the patient has pseudotumor cerebri. She stated she was having headaches and blurry vision over the right side. She was evaluated by her Special Warfare Combatant Crewman who notified her that she has papilledema. She had lumbar puncture and imaging which was suggestive of pseudotumor cerebri. Her blurry vision has resolved. Of note patient was on Progestrone for her mestrual cycle and would usually takes them from mid of the month. But upon standing up since after lumbar puncture she has episode of headache over the right frontal region that is throbbing, is about 7-8/10. Has ph otonophobia and nausea but denies vomiting. Denies any visual disturbance, focal weakness, numbness. She received blood patch today and feels headache is improving but continues to have episodes of feeling headache upon standing up. Objective - Vital Signs Vital signs: Vital Signs Temp 98.2 F 02/24/22 12:00 Pulse 64 02/24/22 14:00 Resp 16 02/24/22 14:00 BP 131/54 02/24/22 12:00 Pulse Ox 97 02/24/22 12:00 Intake & Output 02/23/22 02/24/22 02/24/22 18:59 06:59 18:59 Intake Total 100 Output Total 3000 900 Balance -3000 -900 100 Intake: IV 100 Output: Urine 3000 900 Other: Voiding Method Toilet Toilet Toilet # Voids 2 - Exam GENERAL: The patient is lying in bed and is not in acute distress.. NEUROLOGICAL: Higher mental function: The patient is awake, alert, oriented to self, place and time. Patient is following commands. No aphasia and no neglect. Cranial nerves: The pupils are round, equal and reactive to light. Visual garcia are full to confrontation throughout. Extraocular movement is intact no nystagmus is noted. Facial sensation is normal to touch throughout. The facial strength is normal throughout. Tongue is midline and moved [id number] without any difficulty. No dysarthria is noted. Shoulder shrug is normal bilaterally. Motor: Gait is normal with normal arm swings. The strength is 5 over 5 throughout. Normal tone and bulk. Cerebellum: Normal finger to nose heel to chin bilaterally. Sensation: Sensation is normal to touch throughout. - Labs Labs: Microbiology - Last 24 Hours (Table) 02/21/22 19:17 CSF Gram Stain - Preliminary Cerebral Spinal Fluid CSF Culture - Preliminary Assessment and Plan Assessment: * New-onset right frontal orbital headache with intense pressure, with papilledema. CSF showed elevated intracranial pressure, suggestive of benign intracranial hypertension or pseudotumor cerebri. Patient has been on progesterone for endometriosis for last 1 year. No evidence of dural venous sinus thrombosis. Patient denies any recent weight gain. * Post lumbar puncture headache (right frontal) s/p blood patch Plan: * Patient has developed post-spinal tap headache. She had blood patch today and feels some improvement but not back to baseline. * Continue IV hydration. I started the patient on IV caffeine once. * MRI of the brain and MRV of the head showed no acute deep cerebral venous sinus thrombosis. Elongated globes with prominent CSF surrounding optic nerve sheaths. Findings could be product of idiopathic intracranial hypertension. * Continue Diamox 250mg 1 tab bid. * Patient was counseled on weight loss. * To hold off taking Progestrone at this time for now. * Is on Fioricet 1 tab Q4 HR PRN. * Lumbar puncture was performed by anesthesia in the lateral recumbent position. Opening pressure was 31 cm water. Closing pressure was not checked. About 20 mL of spinal fluid was collected. * CSF revealed 0 WBC, 0 RBC, glucose 58, protein 29 all normal. No viruses detected. MS panel pending per Dr. Degroot. * Patient neurologically clear for discharge, whenever the headache becomes tolerable/resolves. She was notified to be observed by 7ish pm today and if better she is clear and if not can be monitored till tomorrow. * Recommend patient follow up with a neurologist (she will be following-up with me within 1-2 weeks) and shuttle spotter(or a neuro-shuttle spotter). The plan is discussed with the patient and her mother who is at bedside. Arya Martell M.D. Neuro-Hospitalist Time with Patient: Less than 30
[2022-02-24] MEDS ORDERED: CAFFEINE-SODIUM BENZOATE 1,000 MG in SODIUM CHLORIDE 0.9% 1,000 ML IVPB ONE (17:15)
[2022-02-24] MEDS: MELATONIN 3 MG TABLET PO SCH (20:48)
[2022-02-24 22:38] VITALS: RESP 18
[2022-02-25 09:42] VITALS: BP 124/78; PULSE 76; TEMP 98.2
[2022-02-25] MEDS: BUTALB/APAP/CAFF 50-325-40MG TAB PO PRN (09:45)
[2022-02-25] MEDS: acetaZOLAMIDE 250 MG TAB PO SCH (09:45)
[2022-02-25] MEDS: LIOTHYRONINE SODIUM 5 MCG TAB PO SCH (09:45)
[2022-02-25] MEDS: ESCITALOPRAM 20 MG TAB PO SCH (09:45)
[2022-02-25] MEDS: NALTREXONE 4.5 MG PO SCH (09:45)
--- NOTE | 2022-02-25 10:14 | P.PN ---
Subjective Progress Note Date: 02/24/22 HISTORY OF PRESENT ILLNESS This is a 21-year-old female patient recently established with Dr. Man with past medical history of endometriosis and hypothyroidism being treated by [employer] specialist and was constant with history of treatment with progesterone for endometriosis. Patient gives history of 2-1/2 week of headache and migraine- type on the right side of her head. She tried Aleve and Excedrin but on Thursday she thought her right eye was swollen and had a lot of pressure behind her right eye. On Thursday she saw her technicians and trades workers and was told that the pressure in her eye was normal but there was optic nerve swelling and possible papilledema bilaterally and recommended follow-up. Patient called the office and was seen by Alexa Mejia NP scheduled for an MRI of the brain on the weekend. Patient states that pain worsened over that night and she came into the [facility] initially on 02/[facility]. CAT scan of the brain was done which showed no acute intracranial hemorrhage or midline shift. She was provided 1 dose of dexamethasone 8 mg IV push, Toradol, Tylenol, Reglan and 1 L IV fluids and was discharged home, instructed to follow-up with her primary care doctor and MRI that was scheduled. Patient attempted to make an appointment with Dr. Horne but first available appointment was in March and they reached out to a physician that was a friend who then contacted Dr. Arteaga and is currently contacted Dr. Man regarding the patient's symptoms and that patient's mother wanted her to be directly admitted. Arrangements were made this morning for patient to be directly admitted to the hospital for further evaluation. She has been seen by neurology and plan is for MRSA of the brain, MRI with and without contrast. Patient's home medications of been resumed and Tylenol added for headache. 02/22: patient is found resting in bed complaining of a headache and nausea post spinal tap. Patient had a spinal tap approximately at 7:00 last night she is up to the bathroom multiple times in sitting up at the site of the bed. Patient is complaining of a significant headache with nausea. Patient will be started on Fioricet. MRI of the brain shows no acute deep venous thrombosis. Elongated globes with prominent CSS surrounding optic nerve sheath. Findings could be product of idiopathic intracranial hypertension. Diamox. patient is afebrile, heart rate 78, respirations 16, blood pressure 109/65, pulse ox 98% on room air. 02/23: She is found sitting up in bed complaining of a spinal headache. Patient states that the pain is worse when she is up ambulating within the room. Pain relief with Fioricet and positioning. Patient states that her sleep was better last night compared to the night before. Patient continues to have nausea with ambulation. Menses started today. Positive diarrhea noted. Patient remains afebrile, heart rate 72 respirations 16 blood pressure 104/54 97% on room air. 02/24: Patient is complaining of spinal headache and is scheduled for blood patch today. She states she is fairly comfortable when she is laying down but when she gets up she develops headache. Otherwise patient is doing well and will plan on discharging home later this afternoon. Patient will be continued on Diamox and a prescription for Fioricet will be sent to her pharmacy. Neurology is cleared the patient for discharge. Recommend follow-up with neurologist and drywall installer or a neuro-drywall installer. Patient was evaluated by Dr. Aly and he agreed the patient could stay another night. Discharge was delayed. REVIEW OF SYSTEMS Constitutional: No fever, no chills, no night sweats. No weight change. No weakness, fatigue or lethargy. No daytime sleepiness. EENT: Reports continued right-sided headache. No blurred vision or double vision, no loss of vision. No loss of Hearing, no ringing in the ears, no dizziness. No nasal drainage or congestion. No epistaxis. No sore throat. Lungs: No shortness of breath, cough, no sputum production. No wheezing. Cardiovascular: No chest pain, no lower extremity edema. No palpitations. No paroxysmal nocturnal dyspnea. No orthopnea. No lightheadedness or dizziness. No syncopal episodes. Abdominal: No abdominal pain. No nausea, vomiting. No diarrhea. No constipation. No bloody or tarry stools. No loss of appetite. Genitourinary: No dysuria, increased frequency, urgency. No urinary retention. Musculoskeletal: No myalgias. No muscle weakness, no gait dysfunction, no frequent falls. No back pain. No neck pain. Integumentary: No wounds, no lesions. No rash or pruritus. No unusual bruising. No change in hair or nails. Neurologic: No aphasia. No facial droop. No change in mentation. No head injury. No headache. No paralysis. No paresthesia. Psychiatric: No depression. No anxiety. No mood swings. Endocrine: No abnormal blood sugars. No weight change. No excessive sweating or thirst. No cold intolerance. PHYSICAL EXAMINATION Gen: This is a 21-year-old female. She is resting in bed appears to be comfortable and in no acute distress. Mother is at bedside HEENT: Head is atraumatic, normocephalic. Pupils equal, round. Sclerae is anicteric. NECK: Supple. No JVD. No lymphadenopathy. No thyromegaly. LUNGS: Clear to auscultation. No wheezes or rhonchi. No intercostal retractions. HEART: Regular rate and rhythm. No murmur. ABDOMEN: Soft. Bowel sounds are present. No masses. No tenderness. EXTREMITIES: No pedal edema. No calf tenderness. NEUROLOGICAL: Patient is awake, alert and oriented x3. Cranial nerves 2 through 12 are grossly intact. ASSESSMENT AND PLAN 1. Right sided frontal and orbital headache. Consult with nephrology appreciated. MRI/MRA results noted above. Fioricet ordered for spinal headache. Patient instructed to lie in bed. Only up to use the bathroom. We will hold the Tylenol at this time. melatonin 6 mg to help with sleep blood patch today for spinal headache. 2. New onset bilateral papilledema. 3. History of endometriosis. Patient states she takes Naltrexone 4.5 mg daily. 4. Hypothyroidism. Continue Cytomel 10 g daily. 5. Recurrent depression. Continue Lexapro 20 mg daily. 6. Nausea. Continue Zofran 7. Seasonal ALLERGIES. Continue Claritin as needed, Singulair as needed. Patient placed as observation status. DISCHARGE PLAN Home tomorrow Impression and plan of care have been directed as dictated by the signing physician. Mildred Buck nurse practitioner acting as scribe for signing physician. Objective - Vital Signs Vital signs: Vital Signs Temp 98 F 02/24/22 08:20 Pulse 67 02/24/22 08:20 Resp 18 02/24/22 08:20 BP 113/70 02/24/22 08:20 Pulse Ox 98 02/24/22 08:20 Intake & Output 02/23/22 02/24/22 02/24/22 18:59 06:59 18:59 Output Total 3000 900 Balance -3000 -900 Output: Urine 3000 900 Other: Voiding Method Toilet Toilet # Voids 2 - Labs Labs: Microbiology - Last 24 Hours (Table) 02/21/22 19:17 CSF Gram Stain - Preliminary Cerebral Spinal Fluid CSF Culture - Preliminary
--- NOTE | 2022-02-25 13:42 | P.PN ---
Subjective Progress Note Date: 02/25/22 The patient is seen at bedside and feels her headaches is drastically improved. Denies of any visual change or any other new neurological issues. Objective - Vital Signs Vital signs: Vital Signs Temp 98.2 F 02/25/22 08:35 Pulse 76 02/25/22 08:35 Resp 18 02/25/22 08:35 BP 124/78 02/25/22 08:35 Pulse Ox 100 02/25/22 08:35 Intake & Output 02/24/22 02/25/22 02/25/22 18:59 06:59 18:59 Intake Total 100 1200 500 Output Total 1500 800 Balance -1400 400 500 Intake: IV 100 Oral 1200 500 Output: Urine 1500 800 Other: Voiding Method Toilet Toilet - Exam GENERAL: The patient is lying in bed and is not in acute distress.. NEUROLOGICAL: Higher mental function: The patient is awake, alert, oriented to self, place and time. Patient is following commands. No aphasia and no neglect. Cranial nerves: The pupils are round, equal and reactive to light. Visual garcia are full to confrontation throughout. Extraocular movement is intact no nystagmus is noted. Facial sensation is normal to touch throughout. The facial strength is normal throughout. Tongue is midline and moved [id number] without any difficulty. No dysarthria is noted. Shoulder shrug is normal bilaterally. Motor: The strength is 5 over 5 throughout. Normal tone and bulk. Cerebellum: Normal finger to nose heel to chin bilaterally. Sensation: Sensation is normal to touch throughout. - Labs Labs: Microbiology - Last 24 Hours (Table) 02/21/22 19:17 CSF Gram Stain - Preliminary Cerebral Spinal Fluid CSF Culture - Preliminary Assessment and Plan Assessment: * New-onset right frontal orbital headache with intense pressure, with papilledema. CSF showed elevated intracranial pressure, suggestive of benign intracranial hypertension or pseudotumor cerebri. Patient has been on progesterone for endometriosis for last 1 year. No evidence of dural venous sinus thrombosis. Patient denies any recent weight gain. * Post lumbar puncture headache (right frontal) s/p blood patch---headache resolved. Plan: * Patient has developed post-spinal tap headache. She had blood patch yesterday and IV caffeine. Headache resolved. * MRI of the brain and MRV of the head showed no acute deep cerebral venous sinus thrombosis. Elongated globes with prominent CSF surrounding optic nerve sheaths. Findings could be product of idiopathic intracranial hypertension. * Continue Diamox 250mg 1 tab bid. * Patient was counseled on weight loss. * To hold off taking Progestrone at this time for now. * Is on Fioricet 1 tab Q4 HR PRN. * Lumbar puncture was performed by anesthesia in the lateral recumbent position. Opening pressure was 31 cm water. Closing pressure was not checked. About 20 mL of spinal fluid was collected. * CSF revealed 0 WBC, 0 RBC, glucose 58, protein 29 all normal. No viruses detected. MS panel pending per Dr. Degroot. * Recommend patient follow up with a neurologist (she will be following-up with me within 1-2 weeks) and mat packer(or a neuro-mat packer). Patient is clear for discharge from neurological perspective. The plan is discussed with the patient and her nurse. Arya Martell M.D. Neuro-Hospitalist Time with Patient: Less than 30
[2022-02-25 15:05] LABS: IgG - CSF 2.3 mg/dL (0.0 - 3.4); IgG/Albumin Index (CSF) 0.49 (0.00 - 0.77); Immunoglobulin G 934 mg/dL (700 - 1600)
--- NOTE | 2022-02-28 14:18 | P.PCN ---
Date of Procedure: 02/24/22 Procedure(s) Performed: Procedure= lumbar epidural blood patch. Preoperative diagnosis= postdural puncture headache. Postoperative diagnoses= post dural puncture headache. Indication for the procedure= patient developed headache after the diagnostic lumbar puncture,the headache persists in spite of conservative treatment, there is no focal neurological deficit, no fever, no neck stiffness, headache worse with sitting and standing position, and improved with lying supine, for this reason patient is a good candidate for epidural blood patch. anesthesia= IV sedation with Versed 2 mg and fentanyl 100 mcg and local infiltration with lidocaine 1% 3 mL. Complications= none. Description of the procedure= patient identified risks and benefits of the procedure explained to the patient and patient agreed with proceeding, vital signs monitored during the procedure and IV sedation given to decrease anxiety, Back lumbar area prepped with chlorhexidine 3 times, then drape applied the local infiltration of the skin and subcutaneous tissue with lidocaine 1% 3 mL at L4-5 interlaminar space then 20-gauge Tuohy needle advanced slowly at L4-5 interlaminar space, There was positive loss of resistance to normal saline, no heme no paresthesia no cerebrospinal fluid, then after that 20 ML of the blood taken from the patient under strict sterile technique, and after the hand ( dorsal side ) area prepped with a chlorhexidine 3 times using 20-gauge Angiocath, and under sterile technique the 20 ML of the block taken from the patient injected in the epidural space after negative aspiration for heme or CSF and there was no paresthesia then the needle removed intact the skin cleaned and the , bandage applied and patient discharged home in stable condition .
== END 2022-02-25 11:27 | disposition home or self-care (01) ==
LOC: 3SCARD 08:26
PROVIDERS: ADMIT Internal Medicine Geriatric Medicine; ATTEND Internal Medicine Geriatric Medicine
DX: R51.9 Headache, unspecified (principal); H47.10 Unspecified papilledema; R20.2 Paresthesia of skin; E03.9 Hypothyroidism, unspecified; H53.8 Other visual disturbances; H02.843 Edema of right eye, unspecified eyelid; G97.1 Other reaction to spinal and lumbar puncture; R19.7 Diarrhea, unspecified; Y84.4 Aspiration of fluid as the cause of abnormal reaction of the patient, or of later complication, without mention of misadventure at the time of the procedure; N80.9 Endometriosis, unspecified; N73.9 Female pelvic inflammatory disease, unspecified; J30.2 Other seasonal allergic rhinitis; F33.9 Major depressive disorder, recurrent, unspecified; F41.9 Anxiety disorder, unspecified; Z79.899 Other long term (current) drug therapy; Z71.89 Other specified counseling; Z88.0 Allergy status to penicillin; Z88.1 Allergy status to other antibiotic agents; Z88.8 Allergy status to other drugs, medicaments and biological substances; Z83.42 Family history of familial hypercholesterolemia
CPT/HCPCS: 62270; 62273; 96376 ×3; 96361 ×2; 96374; 96375; 87496; 87498; 87529; 87798 ×2; 84157; 82945; 82040; 82042; 82784; 83916; 89050; 87252; 87070; 87205; 70544; 70553; G0378 ×5; G0379; J2250; J2405 ×3; J3010; J1885 ×4; A9585

== ENCOUNTER → 2022-04-28 | Outpatient (CLI) | payer OTHER ==
[2022-04-28 23:06] LABS: T4, Free (Free Thyroxine) 0.79 ng/dL (0.800-1.800)
[2022-04-28 23:20] LABS: Thyroid Peroxidase Antibodies <9.0 U/mL (0.0-33.0)
== END | disposition home or self-care (01) ==
LOC: LABWHC1 14:16
PROVIDERS: ATTEND Obstetrics & Gynecology
DX: E07.9 Disorder of thyroid, unspecified (principal)
CPT/HCPCS: 36415; 84432; 84439; 84443; 84480; 84482; 86376